=== PATIENT | male | born 1955 | race Caucasian/White ===

== ENCOUNTER 2016-11-30 14:55 | Emergency (ER) | payer MEDICARE, OTHER ==
[2016-11-30] MEDS ORDERED: Nitroglycerin 0.4 MG Tab.SL ONE (15:08)
[2016-11-30] MEDS ORDERED: Aspirin 81 MG Tab.Chew ONE (15:08)
[2016-11-30] MEDS ORDERED: Sodium Chloride 0.9% 1,000 ML IV ONE (15:23)
--- NOTE | 2016-11-30 15:23 | EDM.PDOC ---
ED HISTORY OF PRESENT ILLNESS - General Time Seen by Provider: 11/30/16 15:00 Source of Information: Reports: Patient History Limitations: Reports: No limitations - History of Present Illness INITIAL COMMENTS - FREE TEXT/NARRATIVE: Patient presents with chest pain "like someone is standing on his chest". This started 20 minutes ago while waiting out in his car for his daughter here in the ER. He rates pain at 9/10 and says he has never had this before, although he has been told he has had three heart attacks in the past. Yesterday he was in [place] for an angiogram and was told he has too much blockage for angioplasty or stenting and are planning on a triple CABG in the near future down in [place]. He has diabetes and smokes 1 ppd. Yesterday the occupational therapist aide started him on metoprolol and isosorbide. Pt has hepatitis B. - Related Data Allergies/ADRs: Allergies Allergy/AdvReac Type Severity Reaction Status Date / Time varenicline [From Chantix] Allergy Vomiting Verified 11/30/16 15:23 Home Meds: Home Meds Celecoxib [CeleBREX] 200 mg PO DAILY PRN 11/30/16 [History] DULoxetine [Cymbalta] 11/30/16 [History] Insulin Aspart [NovoLOG] 4 - 6 units SQ TIDAC 11/30/16 [History] Insulin Glarg,Human.Rec.Analog [LantUS Solostar] 11/30/16 [History] Lisinopril 11/30/16 [History] Pregabalin [Lyrica] 11/30/16 [History] QUEtiapine [SEROquel] 11/30/16 [History] Ranitidine [Zantac] 150 mg PO DAILY 11/30/16 [History] ED ROS GENERAL - Review of Systems Review Of Systems: See Below Constitutional: Denies: fever, chills HEENT: Reports: No symptoms Respiratory: Reports: Shortness of Breath. Denies: Cough Cardiovascular: Reports: Chest pain. Denies: Edema, Syncope GI/Abdominal: Denies: Constipation, Diarrhea, Nausea, Vomiting : Reports: no symptoms Musculoskeletal: Reports: neck pain (chronic, history of cervical fusion). Denies: shoulder pain, arm pain Skin: Denies: cyanosis, jaundice, mottled, pallor, diaphoresis Neurological: Denies: Confusion, Dizziness, Seizure, Syncope, Trouble Speaking, Difficulty Walking ED EXAM, GENERAL - Physical Exam Exam: See Below Exam Limited By: No limitations General Appearance: alert, WD/WN, no apparent distress Eye Exam: bilateral eye: EOMI, normal inspection, PERRL Ears: normal external exam, hearing grossly normal Nose: normal inspection Throat/Mouth: Normal lips, Normal voice, No airway compromise Head: atraumatic, normocephalic Respiratory/Chest: lungs clear, normal breath sounds, no accessory muscle use, other (tachypnea). No: decreased breath sounds, crackles, rales, rhonchi, wheezing, stridor Cardiovascular: normal peripheral pulses, regular rate, rhythm, no edema, no JVD , no murmur Peripheral Pulses: 2+: carotid (L), carotid (R), radial (L), radial (R), posterior tibial (L), posterior tibial (R) GI/Abdominal: normal bowel sounds, soft, no organomegaly, no distention, tender (somewhat over bladder and LLQ) Extremities: normal inspection, normal range of motion, non-tender, no pedal edema Neurological: alert, oriented, normal cognition, no motor/sensory deficits Psychiatric: normal affect, normal mood Skin Exam: Warm, Dry, Intact, Normal color, No rash Course - Orders/Labs/Meds Orders: Active Orders 24 hr Category Date Time Status EKG Documentation Completion [RC] ASDIRECTED Care 11/30/16 15:13 Ordered CXR [Chest 1V Frontal] [CR] Stat Exams 11/30/16 15:11 Ordered BASIC METABOLIC PANEL,BMP [CHEM] Stat Lab 11/30/16 15:11 Ordered CBC WITH AUTO DIFF [HEME] Stat Lab 11/30/16 15:11 Ordered TROPONIN I [CHEM] Stat Lab 11/30/16 15:11 Ordered EKG 12 Lead [EK] Routine Ther 11/30/16 15:11 Ordered Meds: Medications Discontinued Medications Generic Name Dose Route Start Last Admin Trade Name Freq PRN Reason Stop Dose Admin Aspirin Confirm 11/30/16 15:08 Aspirin Administered 11/30/16 15:09 Dose 324 mg .ROUTE .STK-MED ONE Nitroglycerin Confirm 11/30/16 15:08 Nitrostat Administered 11/30/16 15:09 Dose 0.4 mg .ROUTE .STK-MED ONE - Re-Assessments/Exams Free Text/Narrative Re-Assessment/Exam: 11/30/16 16:19 Chest pressure went from 9/10 to 0 after one nitro. Patient is comfortable now. EKG normal. Trop 0.07; we discussed findings and will run serial troponins and monitor for return of symptoms. 11/30/16 16:45 Patient still comfortable. I am waiting for a call back from his occupational therapist aide to discuss options of keeping here for serial troponins vs sending to them for further evaluation. 11/30/16 17:47 We are sending patient to [facility] in [place] for evaluation and likely CABG. The hospitalist Dr. Buitrago accepted patient for transfer and will consult cardiology. Bebo Maxwell (the occupational therapist aide who cath'd pt yesterday) called me back a little later and agrees that the patient needs to be in a place with bypass capabilities so will send his angiogram results to [facility] in [place]. Departure - Departure Time of Disposition: 17:51 Disposition: DC/Tfer to Acute Hospital 02 Reason for Transfer *Q: Other (CABG) Condition: fair Clinical Impression: Unstable angina, Blockage of coronary artery of heart - My Orders Last 24 Hours: My Active Orders 11/30/16 15:11 CXR [Chest 1V Frontal] [CR] Stat BASIC METABOLIC PANEL,BMP [CHEM] Stat CBC WITH AUTO DIFF [HEME] Stat TROPONIN I [CHEM] Stat EKG 12 Lead [EK] Routine 11/30/16 15:13 EKG Documentation Completion [RC] ASDIRECTED - Assessment/Plan Last 24 Hours: My Active Orders 11/30/16 15:11 CXR [Chest 1V Frontal] [CR] Stat BASIC METABOLIC PANEL,BMP [CHEM] Stat CBC WITH AUTO DIFF [HEME] Stat TROPONIN I [CHEM] Stat EKG 12 Lead [EK] Routine 11/30/16 15:13 EKG Documentation Completion [RC] ASDIRECTED
[2016-11-30 15:45] LABS: CHLORIDE,CL 103 mmol/L (98-115); SODIUM,NA 140 mmol/L (136-145)
[2016-11-30] MEDS ORDERED: Heparin Sodium 5,000 Units/ML Vial IVPUSH ONE (17:41)
[2016-11-30] MEDS ORDERED: Heparin Sodium/D5W 25,000 UNITS/250 ML BAG IV SCH (17:45)
[2016-11-30 18:06] VITALS: BP 127/64
[2016-11-30] MEDS ORDERED: Heparin Sodium/D5W 25,000 UNITS/250 ML BAG ONE (20:02)
[2016-11-30] MEDS ORDERED: Sodium Chloride 0.9% 1,000 ML ONE (20:02)
[2016-12-03] MEDS ORDERED: Aspirin 81 MG Tab.Chew CHEW ONE (09:43)
[2016-12-03] MEDS ORDERED: Nitroglycerin 0.4 MG Tab.SL SL ONE (09:44)
== END 2016-11-30 18:27 ==
LOC: KA.ED 14:55
DX: I20.0 Unstable angina (principal); I21.3 ST elevation (STEMI) myocardial infarction of unspecified site; E11.9 Type 2 diabetes mellitus without complications; F17.210 Nicotine dependence, cigarettes, uncomplicated; Z79.4 Long term (current) use of insulin; Z79.899 Other long term (current) drug therapy; Z88.8 Allergy status to other drugs, medicaments and biological substances
CPT/HCPCS: 36415; 71010; 80048; 81001; 84484; 85025; 85730; 93005; 96361; 96365; 99285; A9270; J1644; J7030

== ENCOUNTER 2018-11-15 02:04 | Emergency (ER) | payer MEDICARE, OTHER ==
--- NOTE | 2018-11-15 02:17 | EDM.PDOC ---
ED HPI GENERAL MEDICAL PROBLEM - General Chief Complaint: Neurological Problem Stated Complaint: Intoxicated Time Seen by Provider: 11/15/18 02:10 Source of Information: Reports: Patient, EMS History Limitations: Reports: Intoxication - History of Present Illness INITIAL COMMENTS - FREE TEXT/NARRATIVE: 63 YO WM presents to ER by EMS with complaints of lower extremity weakness after a fall. Pt reports he was drinking alcohol at the bar [employer] and decided to walk home. Pt reports on his way home he fell multiple times. Pt reports landing on he back and complains of low back pain with lower extremity weakness. Pt denies hitting his head or any other injuries at this time. Pt is alert and oriented x 4 with mild slurred speech. Pt answers all commands appropriately. Pt denies any neck pain or headache at this time. Pt denies chest pain or shortness of breath. No recent illness or fever/chills. Onset: Today Duration: Hour(s): (2) Location: Reports: Back Quality: Reports: Ache Severity: Moderate Improves with: Reports: Rest Worsens with: Reports: Movement Associated Symptoms: Reports: Weakness. Denies: Confusion, Chest Pain, Fever/ Chills, Headaches, Nausea/Vomiting, Shortness of Breath - Related Data Allergies Allergy/AdvReac Type Severity Reaction Status Date / Time varenicline [From Chantix] Allergy Vomiting Verified 11/30/16 15:23 Home Meds: Home Meds Celecoxib [CeleBREX] 200 mg PO DAILY PRN 11/30/16 [History] DULoxetine [Cymbalta] 30 mg PO DAILY 11/30/16 [History] Insulin Aspart [NovoLOG] 4 - 6 units SQ TIDAC 11/30/16 [History] Insulin Glarg,Human.Rec.Analog [LantUS Solostar] 18 units SQ DAILY 11/30/16 [ History] Lisinopril 2.5 g PO DAILY 11/30/16 [History] Pregabalin [Lyrica] 75 mg PO BID 11/30/16 [History] QUEtiapine [SEROquel] 100 mg PO DAILY 11/30/16 [History] Ranitidine [Zantac] 150 mg PO DAILY 11/30/16 [History] Past Medical History HEENT History: Reports: Hard of Hearing, Impaired Vision Cardiovascular History: Reports: CAD, Hypertension, [place] Gastrointestinal History: Reports: GERD Genitourinary History: Reports: Renal Disease Musculoskeletal History: Reports: Arthritis Psychiatric History: Reports: Anxiety, Depression Endocrine/Metabolic History: Reports: Diabetes, Type II - Infectious Disease History Infectious Disease History: Reports: Chicken Pox, Hepatitis B, Measles, Mumps, Shingles - Past Surgical History Musculoskeletal Surgical History: Reports: Other (See Below) Social & Family History - Family History Family Medical History: Noncontributory - Caffeine Use Caffeine Use: Reports: Coffee, Soda ED ROS GENERAL - Review of Systems Review Of Systems: See Below Constitutional: Reports: No Symptoms HEENT: Reports: No Symptoms Respiratory: Reports: No Symptoms Cardiovascular: Reports: No Symptoms Endocrine: Reports: No Symptoms GI/Abdominal: Reports: No Symptoms : Reports: No Symptoms Musculoskeletal: Reports: Back Pain. Denies: Neck Pain Skin: Reports: No Symptoms Neurological: Reports: Difficulty Walking, Weakness. Denies: Confusion, Dizziness, Headache Psychiatric: Reports: No Symptoms Hematologic/Lymphatic: Reports: No Symptoms - Physical Exam Exam: See Below Exam Limited By: No Limitations General Appearance: Alert, WD/WN, No Apparent Distress Eye Exam: Bilateral Eye: EOMI, PERRL Ears: Normal External Exam, Normal Canal, Hearing Grossly Normal, Normal TMs Nose: Normal Inspection, Normal Mucosa, No Blood Throat/Mouth: Normal Inspection, Normal Lips, Normal Teeth, Normal Gums, Normal Oropharynx, Normal Voice, No Airway Compromise Head Exam: Atraumatic, Normocephalic Neck: Normal Inspection, Supple, Non-Tender, Full Range of Motion Respiratory/Chest: No Respiratory Distress, Lungs Clear, Normal Breath Sounds, No Accessory Muscle Use, Chest Non-Tender Cardiovascular: Normal Peripheral Pulses, Regular Rate, Rhythm, No Edema, No Gallop, No JVD, No Murmur, No Rub GI/Abdominal: Normal Bowel Sounds, Soft, Non-Tender, No Organomegaly, No Distention, No Abnormal Bruit, No Mass Neuro Exam (Abbreviated): Alert, Oriented, CN II-XII Intact, Normal Cognition Back Exam: Paraspinal Tenderness, Vertebral Tenderness Extremities: Normal Inspection, Normal Range of Motion, Non-Tender, No Pedal Edema, Normal Capillary Refill Psychiatric: Normal Affect, Normal Mood Skin Exam: Warm, Dry, Intact, Normal Color, No Rash EKG INTERPRETATION EKG Date: 11/15/18 Time: 03:03 Rhythm: NSR Rate (Beats/Min): 77 [place]: Normal P-Wave: Present QRS: Normal ST-T: Normal QT: Normal Course - Orders/Labs/Meds Orders: Active Orders 24 hr Category Date Time Status EKG Documentation Completion [RC] ASDIRECTED Care 11/15/18 02:16 Active Cervical Spine wo Cont [CT] Stat Exams 11/15/18 03:04 Ordered Head wo Cont [CT] Stat Exams 11/15/18 02:15 Ordered Lumbar Spine wo Cont [CT] Stat Exams 11/15/18 02:35 Ordered EKG 12 Lead [EK] Routine Ther 11/15/18 02:15 Ordered Labs: Laboratory Tests 11/15/18 11/15/18 Range/Units 03:20 03:20 WBC 7.98 (5.00-10.00) 10^3/uL RBC 4.23 L (4.50-6.00) 10^6/uL Hgb 14.0 (13.0-17.0) g/dL Hct 40.7 (40.0-52.0) % MCV 96.2 H (82.0-92.0) fL MCH 33.1 H (27.0-31.0) pg MCHC 34.4 (32.0-36.0) g/dL RDW 13.4 (11.5-14.5) % Plt Count 309 (150-400) 10^3/uL MPV 9.8 (7.4-10.4) fL Immature Gran % (Auto) 0.1 (0.0-5.0) % Neut % (Auto) 44.1 L (50.0-70.0) % Lymph % (Auto) 38.0 (20.0-40.0) % Carbon % (Auto) 10.9 H (2.0-8.0) % Eos % (Auto) 6.1 H (1.0-3.0) % Baso % (Auto) 0.8 (0.0-1.0) % Immature Gran # (Auto) 0.01 (0.00-0.50) 10^3/uL Neut # (Auto) 3.52 (2.50-7.00) 10^3/uL Lymph # (Auto) 3.03 (1.00-4.00) 10^3/uL Carbon # (Auto) 0.87 H (0.10-0.80) 10^3/uL Eos # (Auto) 0.49 H (0.10-0.30) 10^3/uL Baso # (Auto) 0.06 (0.00-0.10) 10^3/uL Sodium 144 (136-145) mmol/L Potassium 4.0 (3.3-5.3) mmol/L Chloride 108 D (98-115) mmol/L Carbon Dioxide 21.2 (21.0-32.0) mmol/L Anion Gap 18.8 H (5-15) mmol/L BUN 19 (6-25) mg/dL Creatinine 1.31 H (0.51-1.17) mg/dL Est Cr Clr Drug Dosing TNP Estimated GFR (MDRD) 55 mL/min Glucose 196 H (75 - 99) mg/dL Calcium 8.7 (8.7-10.3) mg/dL Total Bilirubin 0.2 (0.2-1.0) mg/dL AST 35 (15-37) U/L ALT 38 (12-78) U/L Alkaline Phosphatase 168 H (46-116) IU/L Total Protein 7.4 (6.4-8.2) g/dL Albumin 3.54 (3.00-4.80) g/dL Ethyl Alcohol 218 H* (NONE DETECTED) mg/dL - Radiology Interpretation Free Text/Narrative:: CT brain- NAD CT lumbar- NAD CT cervical- NAD - Re-Assessments/Exams Free Text/Narrative Re-Assessment/Exam: 11/15/18 04:02 Pt able to ambulate without difficulty. Pt stood and urinated into a urinal without dysfunction. Pt alert and oriented x4. Pt has a friend who will pick him up from ER. GCS-15 Departure - Departure Time of Disposition: 04:06 Disposition: Home, Self-Care 01 Condition: Good Clinical Impression: Alcohol intoxication Qualifiers: Complication of substance-induced condition: uncomplicated Qualified Code(s): F10.920 - Alcohol use, unspecified with intoxication, uncomplicated Fall Qualifiers: Encounter type: initial encounter Qualified Code(s): W19.XXXA - Unspecified fall, initial encounter Low back pain Qualifiers: Chronicity: acute Back pain laterality: midline Sciatica presence: without sciatica Qualified Code(s): M54.5 - Low back pain - Discharge Information Instructions: Back Pain, Adult, Alcohol Intoxication, [id number] Referrals: Yanelis Maldonado MD [Physician] - Forms: ED Department Discharge Additional Instructions: 1. discharge home 2. heat to back 3. motrin 600mg PO Q6 for pain 4. follow up with PCP for further evaluation and treatment 5. return to ER for worsening symptoms - My Orders Last 24 Hours: My Active Orders 11/15/18 02:15 Head wo Cont [CT] Stat EKG 12 Lead [EK] Routine 11/15/18 02:16 EKG Documentation Completion [RC] ASDIRECTED 11/15/18 02:35 Lumbar Spine wo Cont [CT] Stat 11/15/18 03:04 Cervical Spine wo Cont [CT] Stat - Assessment/Plan Last 24 Hours: My Active Orders 11/15/18 02:15 Head wo Cont [CT] Stat EKG 12 Lead [EK] Routine 11/15/18 02:16 EKG Documentation Completion [RC] ASDIRECTED 11/15/18 02:35 Lumbar Spine wo Cont [CT] Stat 11/15/18 03:04 Cervical Spine wo Cont [CT] Stat Assessment:: 1. ETOH intoxication 2. low back pain after fall 3. lower extremity weakness- resolved Plan: 1. discharge home 2. heat to back 3. motrin 600mg PO Q6 for pain 4. follow up with PCP for further evaluation and treatment 5. return to ER for worsening symptoms
[2018-11-15 03:49] LABS: ANION GAP 18.8 mmol/L (5-15); CHLORIDE,CL 108 mmol/L (98-115); SODIUM,NA 144 mmol/L (136-145)
--- NOTE | 2018-11-15 05:15 | CT ---
[id number] CT/CT Head WO IV EXAM: CT Head WO IV CLINICAL DATA: TRAUMA COMPARISON STUDY: August 2018 FINDINGS: No CT evidence of acute large vessel ischemia. Mild/moderate diffuse parenchymal atrophy. Findings are nonspecific but commonly seen as sequela of chronic small vessel disease. Calvarium is intact. Mastoid air cells and middle ear cavities are clear. IMPRESSION: No acute findings or significant change from the prior examination. Daren Lyons MD 11/15/18 0514 Thank you for allowing us to participate in the care of your patient.
--- NOTE | 2018-11-15 05:18 | CT ---
[id number] CT/CT Cervical Spine WO IV EXAM: CT Cervical Spine WO IV INDICATION: TRAUMA COMPARISON: None. DISCUSSION: Postsurgical change from anterior fusion of C4-C7 Scattered changes of spondylosis the spine. Findings including advanced C3-4 degenerative disc disease with intervertebral disc height loss. Paraseptal and centrilobular emphysematous changes in both lung apices. IMPRESSION: No acute findings in the cervical spine. Daren Lyons MD 11/15/18 0517 Thank you for allowing us to participate in the care of your patient.
--- NOTE | 2018-11-15 05:20 | CT ---
[id number] CT/CT Lumbar Spine WO IV Exam: CT Lumbar Spine WO IV Indication:TRAUMA Comparison: No prior imaging for comparison. Discussion: Mild/moderate changes of spondylosis throughout the lumbar and lower thoracic spine. Findings include intervertebral disc height loss at L2-3. No acute fracture or compression deformity. No spondylolisthesis. Soft tissues are unremarkable. Impression: No acute findings. Other findings are described above. Daren Lyons MD 11/15/18 0519 Thank you for allowing us to participate in the care of your patient.
[2018-11-15 10:43] VITALS: BP 114/70
== END 2018-11-15 04:30 | disposition home or self-care (01) ==
LOC: KA.ED 02:04
DX: M54.5 Low back pain (principal); F10.120 Alcohol abuse with intoxication, uncomplicated; I10 Essential (primary) hypertension; I25.2 Old myocardial infarction; Y90.8 Blood alcohol level of 240 mg/100 ml or more; W19.XXXA Unspecified fall, initial encounter; Z88.8 Allergy status to other drugs, medicaments and biological substances; Z79.899 Other long term (current) drug therapy
CPT/HCPCS: 36415; 70450; 72125; 72131; 80053; 85025; 93005; 99284; G0480

== ENCOUNTER 2019-02-05 14:40 | Emergency (ER) | payer MEDICARE, OTHER ==
[2019-02-05 15:16] VITALS: BP 124/66
--- NOTE | 2019-02-05 15:29 | EDM.PDOC ---
ED HPI GENERAL MEDICAL PROBLEM - General Chief Complaint: Lower Extremity Injury/Pain Stated Complaint: rolled my left ankle Time Seen by Provider: 02/05/19 15:00 Source of Information: Reports: Patient History Limitations: Reports: No Limitations - History of Present Illness INITIAL COMMENTS - FREE TEXT/NARRATIVE: 63-year-old gentleman reports earlier today at approximately 2:00 he slipped off a curb sustaining an injury to his left ankle. This is an inversion type of injury. He complains only of pain along the lateral ankle. He was able to walk home and weight-bear. He is then decided to call the ambulance of service to bring him in for further evaluation due to his pain and discomfort. Reports really no significant swelling or ecchymosis. He was placed in a air compressive splint and ice pack was applied over the left ankle. No other complaints are voiced he denies any trauma to his right lower extremity or either upper extremity. He has no head trauma no loss of consciousness. 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 Pain Score (Numeric/FACES): 8 - Related Data Allergies Allergy/AdvReac Type Severity Reaction Status Date / Time varenicline [From Chantix] Allergy Vomiting Verified 02/05/19 14:49 Home Meds: Home Meds Celecoxib [CeleBREX] 200 mg PO DAILY PRN 11/30/16 [History] DULoxetine [Cymbalta] 30 mg PO DAILY 11/30/16 [History] Insulin Aspart [NovoLOG] 4 - 6 units SQ TIDAC 11/30/16 [History] Lisinopril 2.5 g PO DAILY 11/30/16 [History] Pregabalin [Lyrica] 75 mg PO BID 11/30/16 [History] QUEtiapine [SEROquel] 100 mg PO BEDTIME 11/30/16 [History] Ranitidine [Zantac] 150 mg PO DAILY 11/30/16 [History] Amiodarone HCl [Pacerone] 100 mg PO BID 02/05/19 [History] Aspirin [Halfprin] 81 mg PO DAILY 02/05/19 [History] Budesonide/Formoterol [Symbicort 160-4.5 MCG] 1 puff INH BID 02/05/19 [History] Carvedilol [Coreg] 3.125 mg PO BID 02/05/19 [History] Docusate Sodium 100 mg PO BID PRN 02/05/19 [History] Furosemide [Lasix] 20 mg PO DAILY 02/05/19 [History] Insulin Degludec [Tresiba] 29 unit SQ BEDTIME 02/05/19 [History] Isosorbide Mononitrate [Isosorbide Mononitrate ER] 15 mg PO DAILY@1200 02/05/19 [History] Nitroglycerin [Nitrostat] 0.4 mg SL ASDIRECTED PRN 02/05/19 [History] Ubidecarenone [Co Q-10] 10 mg PO DAILY 02/05/19 [History] atorvaSTATin Calcium [Atorvastatin Calcium] 40 mg PO DAILY 02/05/19 [History] Past Medical History HEENT History: Reports: Hard of Hearing, Impaired Vision Cardiovascular History: Reports: CAD, Hypertension, [place] Gastrointestinal History: Reports: GERD Genitourinary History: Reports: Renal Disease Musculoskeletal History: Reports: Arthritis Other Musculoskeletal History: fractured neck 3 places in 2008 Psychiatric History: Reports: Anxiety, Depression Endocrine/Metabolic History: Reports: Diabetes, Type II - Infectious Disease History Infectious Disease History: Reports: Chicken Pox, Hepatitis B, Measles, Mumps, Shingles - Past Surgical History Musculoskeletal Surgical History: Reports: Other (See Below) Other Musculoskeletal Surgeries/Procedures:: cervical spine Social & Family History - Family History Family Medical History: Noncontributory - Tobacco Use Smoking Status *Q: Current Every Day Smoker Years of Tobacco use: 45 Packs/Tins Daily: 1 Used Tobacco, but Quit: No Second Hand Smoke Exposure: Yes - Caffeine Use Caffeine Use: Reports: Coffee Caffeine Use Comment: did not ask - Recreational Drug Use Recreational Drug Use: No Review of Systems - Review of Systems Review Of Systems: ROS reveals no pertinent complaints other than HPI. ED EXAM, GENERAL - Physical Exam Exam: See Below Exam Limited By: No Limitations General Appearance: Alert, WD/WN, No Apparent Distress Ears: Hearing Grossly Normal Nose: Normal Inspection Throat/Mouth: Normal Voice Head: Atraumatic, Normocephalic Neck: Normal Inspection Respiratory/Chest: No Respiratory Distress Extremities: Normal Inspection, Other (Left ankle is without deformity. No significant swelling. No ecchymosis. Patient is tender over the lateral ankle gutter over the ATF ligament. He has no tenderness across the medial malleolus or lateral malleolus. He has no tenderness over the syndesmosis. He has intact sensation to light touch. Skin is warm dry and intact. Pulses are 2+. He has normal knee range of motion left. 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 Impression: normal ankle x-ray Departure - Departure Time of Disposition: 15:30 Disposition: Home, Self-Care 01 Condition: Good Clinical Impression: Left ankle sprain Qualifiers: Encounter type: initial encounter Involved ligament of ankle: anterior talofibular ligament Qualified Code(s): S93.492A - Sprain of other ligament of left ankle, initial encounter - Discharge Information Instructions: [facility] for Routine Care of Injuries, [id number] Referrals: Yanelis Maldonado MD [Primary Care Provider] - Forms: ED Department Discharge Additional Instructions: 1. Rest. Ice. Compression. Elevation. 2. Ibuprofen 800 mg 3 times a day with food as needed for pain. 3. Weight-bear as tolerated left ankle. 4. Follow-up with your primary care in 10 days if pain and discomfort does not improve. - My Orders Last 24 Hours: My Active Orders 02/05/19 14:49 Ankle Min 3V Lt [CR] Stat - Assessment/Plan Last 24 Hours: My Active Orders 02/05/19 14:49 Ankle Min 3V Lt [CR] Stat Assessment:: Left ankle sprain Plan: 1. Rest. Ice. Compression. Elevation. 2. Ibuprofen 800 mg 3 times a day with food as needed for pain. 3. Weight-bear as tolerated left ankle. 4. Follow-up with your primary care in 10 days if pain and discomfort does not improve.
--- NOTE | 2019-02-05 15:47 | CR ---
[id number] RAD/RAD Ankle Left 3V Min EXAM: LEFT ANKLE 3 VIEWS INDICATION: LEFT LATERAL ANKLE PAIN. COMPARISON: None. DISCUSSION: No fracture, dislocation or other osseous abnormality. IMPRESSION: 1. Negative exam. Jai Bear MD 02/05/19 [id number] Thank you for allowing us to participate in the care of your patient.
== END 2019-02-05 17:16 | disposition home or self-care (01) ==
LOC: KA.ED 14:40
DX: S93.492A Sprain of other ligament of left ankle, initial encounter (principal); I10 Essential (primary) hypertension; I25.2 Old myocardial infarction; I25.10 Atherosclerotic heart disease of native coronary artery without angina pectoris; M19.90 Unspecified osteoarthritis, unspecified site; E11.9 Type 2 diabetes mellitus without complications; F17.210 Nicotine dependence, cigarettes, uncomplicated; Z79.4 Long term (current) use of insulin; Z79.899 Other long term (current) drug therapy; Z88.8 Allergy status to other drugs, medicaments and biological substances; W10.1XXA Fall (on)(from) sidewalk curb, initial encounter
CPT/HCPCS: 73610-LT; 99283; 99283-25

== ENCOUNTER 2020-02-29 23:35 | Emergency (ER) | payer MEDICARE, OTHER ==
[2020-02-29] MEDS ORDERED: Sodium Chloride 0.9% 10 ML Syringe FLUSH PRN (23:46)
[2020-02-29] MEDS ORDERED: Sodium Chloride 0.9% 1,000 ML IV ONE (23:46)
--- NOTE | 2020-02-29 23:52 | EDM.PDOC ---
ED HPI GENERAL MEDICAL PROBLEM - General Chief Complaint: General Stated Complaint: dizziness Time Seen by Provider: 02/29/20 23:45 Source of Information: Reports: Patient History Limitations: Reports: No Limitations - History of Present Illness INITIAL COMMENTS - FREE TEXT/NARRATIVE: Patient is a 64-year-old gentleman who presents to the emergency department via EMS with a complaint of dizziness and abdominal pain. Patient states he was standing up making dinner about 2 hours ago, when he felt dizzy and the need to have a bowel movement. Patient proceeded to the bathroom and had a large watery stool. Patient states he felt very weak and dizzy, felt nauseous and abdomen felt crampy so called 911. Patient denies chest pain, shortness of breath, fever, blood in stool, out of area travel, dysuria, testicular pain, flank pain, or family members with similar symptoms. After discussing incident with patient. He thinks it might have been very hot in the home. Onset: Today, Sudden Duration: Hour(s): Location: Reports: Abdomen Quality: Reports: Pressure Severity: Mild Improves with: Reports: Other (Spontaneously) Worsens with: Reports: None Associated Symptoms: Reports: Diaphoresis, Nausea/Vomiting. Denies: Chest Pain, Fever/Chills, Shortness of Breath - Related Data Allergies Allergy/AdvReac Type Severity Reaction Status Date / Time varenicline [From Chantix] Allergy Vomiting Verified 03/01/20 00:06 Home Meds: Home Meds Aspirin [Halfprin] 81 mg PO DAILY 02/05/19 [History] Budesonide/Formoterol [Symbicort 160-4.5 MCG] 2 puff INH BID 02/05/19 [History] Furosemide [Lasix] 20 mg PO DAILY 02/05/19 [History] Nitroglycerin [Nitrostat] 0.4 mg SL ASDIRECTED PRN 07/07/19 [History] Past Medical History HEENT History: Reports: Hard of Hearing, Impaired Vision Cardiovascular History: Reports: CAD, Heart Failure, Hypertension, [place] Respiratory History: Reports: Bronchitis, Recurrent, COPD Gastrointestinal History: Reports: GERD, Jaundice Genitourinary History: Reports: BPH, Renal Disease Musculoskeletal History: Reports: Arthritis Other Musculoskeletal History: fractured neck 3 places in 2008 Neurological History: Reports: Migraines, Neuropathy, Diabetic Psychiatric History: Reports: Anxiety, Depression Endocrine/Metabolic History: Reports: Diabetes, Type II - Infectious Disease History Infectious Disease History: Reports: Chicken Pox, Hepatitis B, Measles, Mumps, Shingles - Past Surgical History Musculoskeletal Surgical History: Reports: Other (See Below) Other Musculoskeletal Surgeries/Procedures:: cervical spine Social & Family History - Family History Family Medical History: Noncontributory - Caffeine Use Caffeine Use: Reports: Coffee Caffeine Use Comment: did not ask ED ROS GENERAL - Review of Systems Review Of Systems: Comprehensive ROS is negative, except as noted in HPI. Constitutional: Reports: No Symptoms HEENT: Reports: No Symptoms Respiratory: Reports: No Symptoms Cardiovascular: Reports: No Symptoms Endocrine: Reports: No Symptoms GI/Abdominal: Reports: Abdominal Pain : Reports: No Symptoms Musculoskeletal: Reports: No Symptoms Skin: Reports: No Symptoms Neurological: Reports: No Symptoms Psychiatric: Reports: No Symptoms Hematologic/Lymphatic: Reports: No Symptoms Immunologic: Reports: No Symptoms ED EXAM, GENERAL - Physical Exam Exam: See Below Exam Limited By: No Limitations General Appearance: Alert, WD/WN, No Apparent Distress Nose: Normal Inspection, Normal Mucosa, No Blood Throat/Mouth: Normal Inspection, Normal Oropharynx, No Airway Compromise Head: Atraumatic, Normocephalic Neck: Normal Inspection, Supple Respiratory/Chest: No Respiratory Distress, Lungs Clear, Normal Breath Sounds, No Accessory Muscle Use, Chest Non-Tender Cardiovascular: Regular Rate, Rhythm, No Murmur GI/Abdominal: Normal Bowel Sounds, Soft, No Organomegaly, No Distention, No Abnormal Bruit, No Mass, Tender (Epigastric). No: Distended, Guarding, Rigid, Rebound (Male) Exam: No Hernia Back Exam: Normal Inspection. No: CVA Tenderness (L), CVA Tenderness (R) Extremities: Normal Inspection, No Pedal Edema Neurological: Alert, Oriented, Normal Cognition Psychiatric: Normal Affect, Normal Mood Skin Exam: Warm, Dry, Intact, Normal Color, No Rash Lymphatic: No Adenopathy EKG INTERPRETATION EKG Date: 03/01/20 Time: 00:45 Rhythm: NSR Rate (Beats/Min): 82 [place]: Normal P-Wave: Present QRS: Normal ST-T: Other (Nonspecific) QT: Normal Comparison: No Change (From October 2018) Course - Vital Signs Last Recorded V/S: Last Vital Signs Temp Pulse Resp BP 99/58 L 03/01/20 00:07 Pulse Ox - Orders/Labs/Meds Orders: Active Orders 24 hr Category Date Time Status EKG Documentation Completion [RC] ASDIRECTED Care 03/01/20 00:35 Ordered Peripheral IV Care [RC] . DIRECTED Care 02/29/20 23:47 Ordered Abdomen Series w Chest 1V [CR] Stat Exams 02/29/20 23:46 Ordered Sodium Chloride 0.9% [Saline Flush] Med 02/29/20 23:46 Ordered 10 ml FLUSH Q8HR PRN Peripheral IV Insertion Pediatric [OM.PC] Routine Oth 02/29/20 23:46 Ordered EKG 12 Lead [EK] Stat Ther 03/01/20 00:35 Ordered Medication Orders Sodium Chloride (Saline Flush) 10 ml FLUSH Q8HR PRN PRN Reason: keep vein open Labs: Laboratory Tests 02/29/20 02/29/20 Range/Units 23:50 23:50 WBC 10.81 H (5.00-10.00) 10^3/uL RBC 4.31 L (4.50-6.00) 10^6/uL Hgb 13.4 (13.0-17.0) g/dL Hct 41.0 (40.0-52.0) % MCV 95.1 H (82.0-92.0) fL MCH 31.1 H (27.0-31.0) pg MCHC 32.7 (32.0-36.0) g/dL RDW 12.7 (11.5-14.5) % Plt Count 239 (150-400) 10^3/uL MPV 11.0 H (7.4-10.4) fL Immature Gran % (Auto) 0.1 (0.0-5.0) % Neut % (Auto) 64.5 (50.0-70.0) % Lymph % (Auto) 23.9 (20.0-40.0) % [place] % (Auto) 7.9 (2.0-8.0) % Eos % (Auto) 3.0 (1.0-3.0) % Baso % (Auto) 0.6 (0.0-1.0) % Neut # (Auto) 6.99 (2.50-7.00) 10^3/uL Lymph # (Auto) 2.58 (1.00-4.00) 10^3/uL [place] # (Auto) 0.85 H (0.10-0.80) 10^3/uL Eos # (Auto) 0.32 H (0.10-0.30) 10^3/uL Baso # (Auto) 0.06 (0.00-0.10) 10^3/uL Immature Gran # (Auto) 0.01 (0.00-0.50) 10^3/uL Sodium 137 D (136-145) mmol/L Potassium 4.7 (3.3-5.3) mmol/L Chloride 105 (98-115) mmol/L Carbon Dioxide 21.7 (21.0-32.0) mmol/L Anion Gap 15.0 (5-15) mmol/L BUN 25 (6-25) mg/dL Creatinine 1.95 H (0.51-1.17) mg/dL Est Cr Clr Drug Dosing 35.60 mL/min Estimated GFR (MDRD) 35 mL/min Glucose 158 H (75 - 99) mg/dL Calcium 8.8 (8.7-10.3) mg/dL Total Bilirubin 0.5 (0.2-1.0) mg/dL AST 30 (15-37) U/L ALT 37 (12-78) U/L Alkaline Phosphatase 140 H (46-116) IU/L Troponin I 0.07 (0.00-0.070) ng/mL Total Protein 7.4 (6.4-8.2) g/dL Albumin 3.45 (3.00-4.80) g/dL Lipase 93 (73-393) U/L Meds: Medications Generic Name Dose Route Start Last Admin Trade Name Freq PRN Reason Stop Dose Admin Sodium Chloride 10 ml 02/29/20 23:46 Saline Flush FLUSH Q8HR PRN keep vein open Discontinued Medications Generic Name Dose Route Start Last Admin Trade Name Freq PRN Reason Stop Dose Admin Sodium Chloride 1,000 mls @ 999 mls/hr 02/29/20 23:46 Normal Saline IV 03/01/20 00:46 .BOLUS ONE - Radiology Interpretation Free Text/Narrative:: Chest x-ray with abdominal series shows small right pleural effusion and no bowel obstruction - Re-Assessments/Exams Free Text/Narrative Re-Assessment/Exam: 03/01/20 00:56 Patient afebrile, vital signs stable, nontoxic appearing, denies chest pain, shortness of breath, abdominal pain, patient will follow-up with PCP. Departure - Departure Time of Disposition: 00:57 Disposition: Home, Self-Care 01 Condition: Good Clinical Impression: Dizziness, Weakness - Discharge Information Instructions: Weakness, [id number], Dizziness, [id number] Forms: ED Department Discharge Additional Instructions: Follow-up with PCP in next 1-2 days. Return to emergency department sooner if symptoms continue or worsen. Sepsis Event Note (ED) - Focused Exam Vital Signs: Vital Signs BP 03/01/20 00:07 99/58 L - My Orders Last 24 Hours: My Active Orders 02/29/20 23:46 Abdomen Series w Chest 1V [CR] Stat Sodium Chloride 0.9% [Saline Flush] 10 ml FLUSH Q8HR PRN Peripheral IV Insertion Pediatric [OM.PC] Routine 02/29/20 23:47 Peripheral IV Care [RC] . DIRECTED 03/01/20 00:35 EKG Documentation Completion [RC] ASDIRECTED EKG 12 Lead [EK] Stat - Assessment/Plan Last 24 Hours: My Active Orders 02/29/20 23:46 Abdomen Series w Chest 1V [CR] Stat Sodium Chloride 0.9% [Saline Flush] 10 ml FLUSH Q8HR PRN Peripheral IV Insertion Pediatric [OM.PC] Routine 02/29/20 23:47 Peripheral IV Care [RC] . DIRECTED 03/01/20 00:35 EKG Documentation Completion [RC] ASDIRECTED EKG 12 Lead [EK] Stat Assessment:: Dizziness Plan: Follow-up with PCP
[2020-03-01 03:24] VITALS: BP 100/58; PULSE 78
--- NOTE | 2020-03-01 07:39 | CR ---
[id number] RAD/RAD Abdomen 3V Exam: RAD Abdomen 3V Clinical Data: ABDOMINAL PAIN COMPARISON: CORRELATION IS MADE WITH NOVEMBER 30, 2016 FINDINGS: Pleural reaction with an air-fluid level at the right lung base is seen. The patient has undergone median sternotomy since the last exam There are surgical changes of the cervical spine again seen The left lung is clear There are multiple right-sided old rib fractures There is no bowel distention or free air There is no organomegaly or pathologic calcification IMPRESSION: INTERVAL SURGERY SINCE LAST EXAM MULTIPLE RIGHT RIB FRACTURES SINCE LAST EXAM NO ACUTE ABDOMINAL ABNORMALITY Henri Booth MD 03/01/20 0737 Thank you for allowing us to participate in the care of your patient.
== END 2020-03-01 01:15 | disposition home or self-care (01) ==
LOC: KA.ED 23:35
DX: R42 Dizziness and giddiness (principal); R53.1 Weakness; I11.0 Hypertensive heart disease with heart failure; I50.9 Heart failure, unspecified; I25.10 Atherosclerotic heart disease of native coronary artery without angina pectoris; I25.2 Old myocardial infarction; J44.9 Chronic obstructive pulmonary disease, unspecified; M19.90 Unspecified osteoarthritis, unspecified site; E11.9 Type 2 diabetes mellitus without complications; Z79.82 Long term (current) use of aspirin; Z79.899 Other long term (current) drug therapy; Z91.048 Other nonmedicinal substance allergy status
CPT/HCPCS: 36415; 74022; 80053; 83690; 84484; 85025; 93005; 99284; 99285-25

== ENCOUNTER 2021-03-06 04:00 | Emergency (ER) | payer MEDICARE, OTHER ==
[2021-03-06] MEDS ORDERED: Sodium Chloride 0.9% 1,000 ML IV ONE (04:14)
[2021-03-06] MEDS ORDERED: Albuterol/Ipratropium 3.0-0.5 MG/3 ML Neb Soln NEB ONE (04:14)
--- NOTE | 2021-03-06 04:50 | EDM.PDOC ---
ED HPI GENERAL MEDICAL PROBLEM - General Chief Complaint: Cardiovascular Problem Stated Complaint: SOB, dizziness Time Seen by Provider: 03/06/21 04:35 Source of Information: Reports: Patient History Limitations: Reports: No Limitations - History of Present Illness INITIAL COMMENTS - FREE TEXT/NARRATIVE: Patient presents with dyspnea and lightheadedness for about 24 hours. It has been quite constant without improving or worsening during that time. He denies chest pain or pressure, just really short of breath. He smokes 1 ppd. He doesn't know if he has COPD or past [place], but has had 4 vessel CABG. He has CHF and COPD per our records. He tried his inhaler at home without improvement but does feel better after the DuoNeb here in ER. headache Pain Score (Numeric/FACES): 4 - Related Data Allergies Allergy/AdvReac Type Severity Reaction Status Date / Time varenicline [From Chantix] Allergy Vomiting Verified 03/06/21 04:13 Home Meds: Home Meds Aspirin [Halfprin] 81 mg PO DAILY 02/05/19 [History] Budesonide/Formoterol [Symbicort 160-4.5 MCG] 2 puff INH BID 02/05/19 [History] Albuterol Sulfate [Albuterol Sulfate HFA] 2 puff INH BID PRN 03/06/21 [History] Past Medical History HEENT History: Reports: Hard of Hearing, Impaired Vision Cardiovascular History: Reports: CAD, Heart Failure, Hypertension, [place] Respiratory History: Reports: Bronchitis, Recurrent, COPD Gastrointestinal History: Reports: GERD, Jaundice Genitourinary History: Reports: BPH, Renal Disease Musculoskeletal History: Reports: Arthritis Other Musculoskeletal History: fractured neck 3 places in 2008 Neurological History: Reports: Migraines, Neuropathy, Diabetic Psychiatric History: Reports: Anxiety, Depression Endocrine/Metabolic History: Reports: Diabetes, Type II - Infectious Disease History Infectious Disease History: Reports: Chicken Pox, Hepatitis B, Measles, Mumps, Shingles - Past Surgical History Musculoskeletal Surgical History: Reports: Other (See Below) Other Musculoskeletal Surgeries/Procedures:: cervical spine Social & Family History - Family History Family Medical History: No Pertinent Family History - Caffeine Use Caffeine Use: Reports: Coffee Caffeine Use Comment: did not ask ED ROS GENERAL - Review of Systems Review Of Systems: See Below Constitutional: Reports: Weakness, Fatigue. Denies: Fever, Chills HEENT: Reports: No Symptoms Respiratory: Reports: Shortness of Breath, Cough (for several months but a little worse last few days) Cardiovascular: Reports: Lightheadedness. Denies: Chest Pain, Syncope Endocrine: Reports: Fatigue (mild) GI/Abdominal: Denies: Abdominal Pain, Vomiting Musculoskeletal: Reports: Neck Pain (chronic; had fusion), Back Pain (chronic). Denies: Shoulder Pain, Arm Pain Skin: Denies: Cyanosis, Jaundice, Mottled, Pallor, Diaphoresis Neurological: Denies: Confusion, Dizziness, Seizure, Syncope, Trouble Speaking, Difficulty Walking Psychiatric: Denies: Agitation, Anxiety, Confusion ED EXAM, GENERAL - Physical Exam Exam: See Below Exam Limited By: No Limitations General Appearance: Alert, WD/WN, No Apparent Distress Eye Exam: Bilateral Eye: EOMI, Normal Inspection, PERRL Ears: Normal External Exam, Hearing Grossly Normal Nose: Normal Inspection, No Blood Throat/Mouth: Normal Inspection, Normal Lips, Normal Voice, No Airway Compromise Head: Atraumatic, Normocephalic Neck: Normal Inspection, Full Range of Motion Respiratory/Chest: Crackles (bilat especially bases), Other (tachypnea and moderately poor air movement). No: Wheezing, Stridor Cardiovascular: Regular Rate, Rhythm, No Murmur Course - Vital Signs Last Recorded V/S: Last Vital Signs Temp 97.2 F 03/06/21 04:00 Pulse 90 03/06/21 05:15 Resp 23 H 03/06/21 05:15 BP 137/89 03/06/21 05:15 Pulse Ox 94 L 03/06/21 05:15 - Orders/Labs/Meds Orders: Active Orders 24 hr Category Date Time Status EKG Documentation Completion [RC] ASDIRECTED Care 03/06/21 04:14 Active RT Aerosol Therapy [RC] ASDIRECTED Care 03/06/21 04:14 Active Chest 2V [CR] Stat Exams 03/06/21 04:13 Ordered EKG 12 Lead [EK] Stat Ther 03/06/21 04:13 Ordered Labs: Laboratory Tests 03/06/21 03/06/21 03/06/21 Range/Units 04:30 04:40 04:40 WBC 10.40 H (5.00-10.00) 10^3/uL RBC 4.16 L (4.50-6.00) 10^6/uL Hgb 12.8 L (13.0-17.0) g/dL Hct 40.0 (40.0-52.0) % MCV 96.2 H (82.0-92.0) fL MCH 30.8 (27.0-31.0) pg MCHC 32.0 (32.0-36.0) g/dL RDW 14.3 (11.5-14.5) % Plt Count 250 (150-400) 10^3/uL MPV 10.8 H (7.4-10.4) fL Immature Gran % (Auto) 0.2 (0.0-5.0) % Neut % (Auto) 61.9 (50.0-70.0) % Lymph % (Auto) 25.4 (20.0-40.0) % [place] % (Auto) 8.7 H (2.0-8.0) % Eos % (Auto) 3.1 H (1.0-3.0) % Baso % (Auto) 0.7 (0.0-1.0) % Neut # (Auto) 6.45 (2.50-7.00) 10^3/uL Lymph # (Auto) 2.64 (1.00-4.00) 10^3/uL [place] # (Auto) 0.90 H (0.10-0.80) 10^3/uL Eos # (Auto) 0.32 H (0.10-0.30) 10^3/uL Baso # (Auto) 0.07 (0.00-0.10) 10^3/uL Immature Gran # (Auto) 0.02 (0.00-0.50) 10^3/uL Sodium 138 (136-145) mmol/L Potassium 4.6 (3.5-5.1) mmol/L Chloride 104 (98-107) mmol/L Carbon Dioxide 23.1 (21.0-32.0) mmol/L Anion Gap 15.5 H (5-15) mmol/L BUN 29 H (7-18) mg/dL Creatinine 1.53 H (0.51-1.17) mg/dL Est Cr Clr Drug Dosing 43.44 mL/min Estimated GFR (MDRD) 46 mL/min Glucose 136 (70-140) mg/dL Lactic Acid 0.8 (0.4-2.0) mmol/L Calcium 8.3 L (8.7-10.3) mg/dL Total Bilirubin 0.3 (0.2-1.0) mg/dL AST 88 H (15-37) U/L ALT 79 H (14-63) U/L Alkaline Phosphatase 132 H (46-116) U/L Troponin I High Sens 27.100 (0-76.000) pg/mL B-Natriuretic Peptide (0-100) pg/mL Total Protein 6.9 (6.4-8.2) g/dL Albumin 3.18 L (3.40-5.00) g/dL 03/06/21 Range/Units 04:40 WBC (5.00-10.00) 10^3/uL RBC (4.50-6.00) 10^6/uL Hgb (13.0-17.0) g/dL Hct (40.0-52.0) % MCV (82.0-92.0) fL MCH (27.0-31.0) pg MCHC (32.0-36.0) g/dL RDW (11.5-14.5) % Plt Count (150-400) 10^3/uL MPV (7.4-10.4) fL Immature Gran % (Auto) (0.0-5.0) % Neut % (Auto) (50.0-70.0) % Lymph % (Auto) (20.0-40.0) % [place] % (Auto) (2.0-8.0) % Eos % (Auto) (1.0-3.0) % Baso % (Auto) (0.0-1.0) % Neut # (Auto) (2.50-7.00) 10^3/uL Lymph # (Auto) (1.00-4.00) 10^3/uL [place] # (Auto) (0.10-0.80) 10^3/uL Eos # (Auto) (0.10-0.30) 10^3/uL Baso # (Auto) (0.00-0.10) 10^3/uL Immature Gran # (Auto) (0.00-0.50) 10^3/uL Sodium (136-145) mmol/L Potassium (3.5-5.1) mmol/L Chloride (98-107) mmol/L Carbon Dioxide (21.0-32.0) mmol/L Anion Gap (5-15) mmol/L BUN (7-18) mg/dL Creatinine (0.51-1.17) mg/dL Est Cr Clr Drug Dosing mL/min Estimated GFR (MDRD) mL/min Glucose (70-140) mg/dL Lactic Acid (0.4-2.0) mmol/L Calcium (8.7-10.3) mg/dL Total Bilirubin (0.2-1.0) mg/dL AST (15-37) U/L ALT (14-63) U/L Alkaline Phosphatase (46-116) U/L Troponin I High Sens (0-76.000) pg/mL B-Natriuretic Peptide 1700 H (0-100) pg/mL Total Protein (6.4-8.2) g/dL Albumin (3.40-5.00) g/dL Meds: Medications Discontinued Medications Generic Name Dose Route Start Last Admin Trade Name Freq PRN Reason Stop Dose Admin Albuterol/Ipratropium 3 ml 03/06/21 04:14 03/06/21 04:16 Albuterol/Ipratropium 3.0-0.5 Mg/3 Ml Neb Soln NEB 03/06/21 04:15 3 ml ONETIME ONE Administration Sodium Chloride 1,000 mls @ 999 mls/hr 03/06/21 04:14 03/06/21 05:35 Normal Saline IV 03/06/21 05:14 Not Given .BOLUS ONE Methylprednisolone Sodium Succinate 125 mg 03/06/21 05:20 03/06/21 05:35 Methylprednisolone Sodium Succinate 125 Mg/2 Ml Sdv IVPUSH 03/06/21 05:21 125 mg ONETIME ONE Administration - Re-Assessments/Exams Free Text/Narrative Re-Assessment/Exam: 03/06/21 05:32 EKG shows NSR, there are subtle ST elevations in V1 and V2 but only 1mm. Troponin is negative. BNP is 1700 with no previous done here but we did find records of 303 and 3700 over a year ago. CXR shows possible slight effusion in right lung base and moderate on left. Waiting on report as PACS was down for awhile tonight. I don't see definite infiltrates but patient has been hospitalized several times in last couple years with pneumonia. He says this doesn't feel like pneumonia today. CBC okay. Lactic acid and troponin are normal. BUN and Creat are chronically elevated but at baseline. He feels quite a bit better after the DuoNeb and doesn't have that at home. He has Lasix that he used to take daily but hasn't for quite awhile. He can take one at home. We discussed findings and treatment options. He doesn't want to be hospitalized if possible. 03/06/21 05:57 Waiting on xray report as PACS is up now. 03/06/21 06:15 CXR reports Cardiomegaly with pleural effusion; and infiltrates vs edema. Based on labs I feel more likely edema. Discussed with patient and he will take the Lasix and Prednisone as well as Duonebs (will get the Duoneb machine today). He will see Dr. Stringer tomorrow unless he worsens and will come back to ER. He is feeling a lot better after the DuoNeb and is discharged to home in stable condition. Departure - Departure Time of Disposition: 06:06 Disposition: Home, Self-Care 01 Condition: Good Clinical Impression: COPD exacerbation Acute exacerbation of CHF (congestive heart failure) Qualifiers: Heart failure type: unspecified Qualified Code(s): I50.9 - Heart failure, unspecified Forms: ED Department Discharge Additional Instructions: Take your Lasix when you get home. Continue daily as prescribed until changed by your PCP. Use the DuoNebs as directed when needed. Continue your inhalers and other medications as directed. Follow up with Dr. Stringer tomorrow for recheck. Return to ER if worsening. Sepsis Event Note (ED) - Evaluation Sepsis Screening Result: No Definite Risk - Focused Exam Vital Signs: Vital Signs Temp Pulse Resp BP Pulse Ox Pulse Ox 03/06/21 05:15 90 23 H 137/89 94 L 03/06/21 04:34 86 23 H 137/91 H 95 03/06/21 04:14 80 95 03/06/21 04:00 97.2 F 86 29 H 133/87 95 - My Orders Last 24 Hours: My Active Orders 03/06/21 04:13 Chest 2V [CR] Stat EKG 12 Lead [EK] Stat 03/06/21 04:14 EKG Documentation Completion [RC] ASDIRECTED RT Aerosol Therapy [RC] ASDIRECTED - Assessment/Plan Last 24 Hours: My Active Orders 03/06/21 04:13 Chest 2V [CR] Stat EKG 12 Lead [EK] Stat 03/06/21 04:14 EKG Documentation Completion [RC] ASDIRECTED RT Aerosol Therapy [RC] ASDIRECTED
[2021-03-06 04:59] LABS: ANION GAP 15.5 mmol/L (5-15)
[2021-03-06] MEDS ORDERED: methylPREDNISolone Sodium Succinate 125 MG/2 ML SDV IVPUSH ONE (05:20)
[2021-03-06 06:09] VITALS: BP 126/80; PULSE 86
== END 2021-03-06 06:15 | disposition home or self-care (01) ==
LOC: KA.ED 04:00
DX: J44.1 Chronic obstructive pulmonary disease with (acute) exacerbation (principal); I11.0 Hypertensive heart disease with heart failure; I50.9 Heart failure, unspecified; I25.10 Atherosclerotic heart disease of native coronary artery without angina pectoris; I25.2 Old myocardial infarction; M19.90 Unspecified osteoarthritis, unspecified site; E11.40 Type 2 diabetes mellitus with diabetic neuropathy, unspecified; F17.210 Nicotine dependence, cigarettes, uncomplicated; Z88.8 Allergy status to other drugs, medicaments and biological substances; Z79.82 Long term (current) use of aspirin; Z79.899 Other long term (current) drug therapy
CPT/HCPCS: 36415; 71046; 80053; 83605; 83880; 84484; 85025; 93005; 94640; 96374; 99284; 99285-25; J2930; J7620-GY

== ENCOUNTER 2021-03-14 09:38 | Emergency (ER) | payer MEDICARE, OTHER ==
[2021-03-14] MEDS ORDERED: Albuterol/Ipratropium 3.0-0.5 MG/3 ML Neb Soln NEB ONE (10:16)
--- NOTE | 2021-03-14 10:19 | EDM.PDOC ---
ED HPI GENERAL MEDICAL PROBLEM - General Chief Complaint: Respiratory Problem Stated Complaint: SOB Time Seen by Provider: 03/14/21 10:00 Source of Information: Reports: Patient History Limitations: Reports: No Limitations - History of Present Illness INITIAL COMMENTS - FREE TEXT/NARRATIVE: 65 YO WM PRESENTS TO ER FROM CLINIC COMPLAINING OF SHORTNESS OF BREATH AND CHEST TIGHTNESS WHICH BEGAN AT 1AM TODAY. PT REPORTS HE WENT TO BED AND WOKE UP FEELING SHORT OF BREATH. PT REPORTS USING HIS ALBUTEROL NEB WITHOUT RELIEF. PT WENT TO CLINIC FOR EVALUATION BUT WAS SENT TO ER FOR FURTHER EVALUATION AND TREATMENT. PT DENIES FEVER/CHILLS, NO NAUSEA/VOMITING. PT REPORTS A NONPRODUCTIVE COUGH. PT SAO2 ON ARRIVAL WAS 91% RA AND WAS PLACED ON 2L OF OXYGEN WITH SOME IMPROVEMENT IN HIS CHEST TIGHTNESS AND SHORTNESS OF BREATH. PT DENIES ANY LOWER EXTREMITY SWELLING OR DIFFICULTY BUTTONING HIS PAINTS. PT WAS IN ER 1 WEEK AGO FOR SIMILAR AND DIAGNOSED WITH MILD CHF AND COPD EXACERBATION. PT WAS DISCHARGED ON PREDNISONE, DUONEBS AND LASIX AT THAT TIME. Onset: Today Onset Date: 03/14/21 Onset Time: 01:00 Location: Reports: Chest Quality: Reports: Pressure Improves with: Reports: None Worsens with: Reports: None Associated Symptoms: Reports: Chest Pain, Cough, Shortness of Breath. Denies: cough w sputum, Diaphoresis, Fever/Chills, Nausea/Vomiting, Syncope chest Pain Score (Numeric/FACES): 4 - Related Data Allergies Allergy/AdvReac Type Severity Reaction Status Date / Time varenicline [From Chantix] Allergy Vomiting Verified 03/14/21 10:09 Home Meds: Home Meds Aspirin [Halfprin] 81 mg PO DAILY 02/05/19 [History] Budesonide/Formoterol [Symbicort 160-4.5 MCG] 2 puff INH BID 02/05/19 [History] Albuterol Sulfate [Albuterol Sulfate HFA] 2 puff INH BID PRN 03/06/21 [History] Nitroglycerin 0.4 mg SL ASDIRECTED 03/14/21 [History] Past Medical History HEENT History: Reports: Hard of Hearing, Impaired Vision Cardiovascular History: Reports: Bypass, CAD, Heart Failure, Hypertension, [place] Respiratory History: Reports: Bronchitis, Recurrent, COPD, Pneumonia, Recurrent, SOB, Other (See Below) Other Respiratory History: smoker Gastrointestinal History: Reports: GERD, Jaundice Genitourinary History: Reports: BPH, Renal Disease Musculoskeletal History: Reports: Arthritis Other Musculoskeletal History: fractured neck 3 places in 2009 Neurological History: Reports: Migraines, Neuropathy, Diabetic Psychiatric History: Reports: Anxiety, Depression Endocrine/Metabolic History: Reports: Diabetes, Type II - Infectious Disease History Infectious Disease History: Reports: Chicken Pox, Hepatitis B, Measles, Mumps, Shingles - Past Surgical History HEENT Surgical History: Reports: None Cardiovascular Surgical History: Reports: None Respiratory Surgical History: Reports: Other (See Below) Other Respiratory Surgeries/Procedures: right lobectomy GI Surgical History: Reports: Colonoscopy Musculoskeletal Surgical History: Reports: Other (See Below) Other Musculoskeletal Surgeries/Procedures:: cervical spine Social & Family History - Family History Family Medical History: No Pertinent Family History - Tobacco Use Tobacco Use Status *Q: Current Every Day Tobacco User Years of Tobacco use: 40 Packs/Tins Daily: 0.5 - Caffeine Use Caffeine Use: Reports: Coffee Caffeine Use Comment: did not ask - Alcohol Use Days Per Week of Alcohol Use: 1 Number of Drinks Per Day: 1 Total Drinks Per Week: 1 - Recreational Drug Use Recreational Drug Use: Yes Drug Use in Last 12 Months: Yes Recreational Drug Type: Reports: Marijuana/Hashish Recreational Drug Use Frequency: Weekly ED ROS GENERAL - Review of Systems Review Of Systems: See Below Constitutional: Reports: No Symptoms HEENT: Reports: No Symptoms Respiratory: Reports: Shortness of Breath, Cough Cardiovascular: Reports: Chest Pain Endocrine: Reports: No Symptoms GI/Abdominal: Reports: No Symptoms : Reports: No Symptoms Musculoskeletal: Reports: No Symptoms Skin: Reports: No Symptoms Neurological: Reports: No Symptoms Psychiatric: Reports: No Symptoms Hematologic/Lymphatic: Reports: No Symptoms Immunologic: Reports: No Symptoms ED EXAM, GENERAL - Physical Exam Exam: See Below Exam Limited By: No Limitations General Appearance: Alert, WD/WN, No Apparent Distress Eye Exam: Bilateral Eye: EOMI, PERRL Head: Atraumatic, Normocephalic Neck: Normal Inspection, Supple, Non-Tender, Full Range of Motion Respiratory/Chest: No Respiratory Distress, Chest Non-Tender, Crackles, Wheezing, Accessory Muscle Use Cardiovascular: Normal Peripheral Pulses, Regular Rate, Rhythm, No Edema, No Gallop, No JVD, No Rub, Systolic Murmur GI/Abdominal: Normal Bowel Sounds, Soft, Non-Tender, No Organomegaly, No Distention, No Abnormal Bruit, No Mass Back Exam: Normal Inspection, Full Range of Motion Extremities: Normal Inspection, Normal Range of Motion, Non-Tender, Normal Capillary Refill, No Pedal Edema Neurological: Alert, Oriented, CN II-XII Intact, Normal Cognition, Normal Gait, Normal Reflexes, No Motor/Sensory Deficits Psychiatric: Normal Affect, Normal Mood Skin Exam: Warm, Dry, Intact, Normal Color, No Rash Lymphatic: No Adenopathy #1 Interpretation EKG Date: 03/14/21 Time: 09:41 Rhythm: NSR Rate (Beats/Min): 91 [place]: Normal P-Wave: Present QRS: Normal ST-T: Normal QT: Normal Course - Vital Signs Last Recorded V/S: Last Vital Signs Temp 97.1 F 03/14/21 09:50 Pulse 104 H 03/14/21 10:50 Resp 20 03/14/21 10:50 BP 137/78 03/14/21 10:50 Pulse Ox 97 03/14/21 10:50 - Orders/Labs/Meds Orders: Active Orders 24 hr Category Date Time Status EKG Documentation Completion [RC] ASDIRECTED Care 03/14/21 09:49 Active RT Aerosol Therapy [RC] ASDIRECTED Care 03/14/21 10:16 Active Heparin Sodium/D5W 250 ml Med 03/14/21 11:00 Active IV TITRATE Nitroglycerin/D5W [Nitroglycerin 50 MG/D5W 250 ML] Med 03/14/21 11:15 Active 50 mg in 250 ml IV TITRATE EKG 12 Lead [EK] Stat Ther 03/14/21 09:49 Ordered Medication Orders Heparin Sodium/Dextrose () 250 mls @ 8.785 mls/hr IV TITRATE MELL; Protocol Last Admin: 03/14/21 11:08 Dose: 12.02 units/kg/hr, 8.8 mls/hr Documented by: MICHAEL Cosigned by: JULITA Nitroglycerin/Dextrose (Nitroglycerin 50 Mg/D5w 250 Ml) 50 mg in 250 mls @ 3 mls/hr IV TITRATE MELL Last Admin: 03/14/21 11:23 Dose: 10 mcg/min, 3 mls/hr Documented by: MICHAEL Labs: Laboratory Tests 03/14/21 03/14/21 03/14/21 Range/Units 09:55 09:55 09:55 WBC 13.78 H (5.00-10.00) 10^3/uL RBC 4.11 L (4.50-6.00) 10^6/uL Hgb 12.6 L (13.0-17.0) g/dL Hct 40.0 (40.0-52.0) % MCV 97.3 H (82.0-92.0) fL MCH 30.7 (27.0-31.0) pg MCHC 31.5 L (32.0-36.0) g/dL RDW 14.8 H (11.5-14.5) % Plt Count 258 (150-400) 10^3/uL MPV 10.9 H (7.4-10.4) fL Immature Gran % (Auto) 0.1 (0.0-5.0) % Neut % (Auto) 78.4 H (50.0-70.0) % Lymph % (Auto) 12.0 L (20.0-40.0) % [place] % (Auto) 8.4 H (2.0-8.0) % Eos % (Auto) 0.9 L (1.0-3.0) % Baso % (Auto) 0.2 (0.0-1.0) % Neut # (Auto) 10.79 H (2.50-7.00) 10^3/uL Lymph # (Auto) 1.66 (1.00-4.00) 10^3/uL [place] # (Auto) 1.16 H (0.10-0.80) 10^3/uL Eos # (Auto) 0.12 (0.10-0.30) 10^3/uL Baso # (Auto) 0.03 (0.00-0.10) 10^3/uL Immature Gran # (Auto) 0.02 (0.00-0.50) 10^3/uL Sodium 136 (136-145) mmol/L Potassium 5.0 (3.5-5.1) mmol/L Chloride 101 (98-107) mmol/L Carbon Dioxide 27.0 (21.0-32.0) mmol/L Anion Gap 13.0 (5-15) mmol/L BUN 37 H (7-18) mg/dL Creatinine 1.62 H (0.51-1.17) mg/dL Est Cr Clr Drug Dosing TNP Estimated GFR (MDRD) 43 mL/min Glucose 230 H (70-140) mg/dL Calcium 8.3 L (8.7-10.3) mg/dL Magnesium 1.9 (1.8-2.4) mg/dL Total Bilirubin 0.6 (0.2-1.0) mg/dL AST 38 H (15-37) U/L ALT 72 H (14-63) U/L Alkaline Phosphatase 136 H (46-116) U/L Creatine Kinase 70 (26-276) U/L CK-MB (CK-2) 3.54 (0.00-3.60) ng/mL Troponin I High Sens 1102.200 H* (0-76.000) pg/mL B-Natriuretic Peptide 2100 H (0-100) pg/mL Total Protein 6.6 (6.4-8.2) g/dL Albumin 3.05 L (3.40-5.00) g/dL Meds: Medications Generic Name Dose Route Start Last Admin Trade Name Freq PRN Reason Stop Dose Admin Heparin Sodium/Dextrose 250 mls @ 8.785 mls/hr 03/14/21 11:00 03/14/21 11:08 IV 12.02 units/kg/hr TITRATE MELL 8.8 mls/hr Administration Protocol 12 UNITS/KG/HR Nitroglycerin/Dextrose 50 mg in 250 mls @ 3 mls/hr 03/14/21 11:15 03/14/21 11:23 Nitroglycerin 50 Mg/D5w 250 Ml IV 10 mcg/min TITRATE MELL 3 mls/hr Administration 10 MCG/MIN Discontinued Medications Generic Name Dose Route Start Last Admin Trade Name Freq PRN Reason Stop Dose Admin Albuterol/Ipratropium 3 ml 03/14/21 10:16 03/14/21 10:17 Albuterol/Ipratropium 3.0-0.5 Mg/3 Ml Neb Soln NEB 03/14/21 10:17 3 ml ONETIME ONE Administration Aspirin 243 mg 03/14/21 10:32 03/14/21 10:40 Aspirin 81 Mg Tab.Chew PO 03/14/21 10:33 243 mg ONETIME ONE Administration Furosemide 40 mg 03/14/21 10:32 03/14/21 10:43 Furosemide 40 Mg/4 Ml Vial IVPUSH 03/14/21 10:33 40 mg NOW ONE Administration Heparin Sodium (Porcine) 4,000 units 03/14/21 10:49 03/14/21 11:00 Heparin Sodium 5,000 Units/Ml Vial IVPUSH 03/14/21 10:50 4,000 units ONETIME ONE Administration Nitroglycerin 1 gm 03/14/21 10:39 03/14/21 10:44 Nitroglycerin 2% Oint 1 Gm Ud Packet TOP 03/14/21 10:40 0.5 gm ONETIME ONE Administration - Radiology Interpretation Free Text/Narrative:: CXR- CENTRAL VENOUS CONGESTION, CM, BILATERAL PLEURAL EFFUSIONS - Re-Assessments/Exams Free Text/Narrative Re-Assessment/Exam: 03/14/21 10:[address] HEARD- WHO STATES HE HAS NO BEDS IN HOUSE BUT WILL CALL ME AFTER DISCUSSION WITH GEOGRAPHIC INFORMATION SYSTEMS ENGINEER. PT STARTED ON A HEPARIN GTT AFTER GIVEN BOLUS OF 4000U Departure - Departure Time of Disposition: 11:08 Disposition: DC/Tfer to Acute Hospital 02 Condition: Critical Clinical Impression: Non-STEMI (non-ST elevated myocardial infarction) Acute exacerbation of CHF (congestive heart failure) Qualifiers: Heart failure type: unspecified Qualified Code(s): I50.9 - Heart failure, unspecified - Discharge Information Referrals: Yanelis Maldonado MD [Primary Care Provider] - Forms: ED Department Discharge, Interfacility Transfer MARIANA Sepsis Event Note (ED) - Evaluation Sepsis Screening Result: No Definite Risk - Focused Exam Vital Signs: Vital Signs Temp Pulse Resp BP Pulse Ox 03/14/21 10:50 104 H 20 137/78 97 03/14/21 10:30 101 H 26 H 114/88 27 L 03/14/21 10:15 90 23 H 125/75 95 03/14/21 10:00 94 27 H 126/90 99 03/14/21 09:50 97.1 F 96 30 H 135/76 97 - My Orders Last 24 Hours: My Active Orders 03/14/21 09:49 EKG Documentation Completion [RC] ASDIRECTED EKG 12 Lead [EK] Stat 03/14/21 10:16 RT Aerosol Therapy [RC] ASDIRECTED 03/14/21 11:00 Heparin Sodium/D5W 250 ml IV TITRATE 03/14/21 11:15 Nitroglycerin/D5W [Nitroglycerin 50 MG/D5W 250 ML] 50 mg in 250 ml IV TITRATE - Assessment/Plan Last 24 Hours: My Active Orders 03/14/21 09:49 EKG Documentation Completion [RC] ASDIRECTED EKG 12 Lead [EK] Stat 03/14/21 10:16 RT Aerosol Therapy [RC] ASDIRECTED 03/14/21 11:00 Heparin Sodium/D5W 250 ml IV TITRATE 03/14/21 11:15 Nitroglycerin/D5W [Nitroglycerin 50 MG/D5W 250 ML] 50 mg in 250 ml IV TITRATE Assessment:: 1. NONSTEMI 2. CHF EXACERBATION Plan: 1. TRANSFER TO [facility] 2. NITRO GTT STARTED @10UG 3. HEPARIN GTT 12MG/KG/HR 4. SUPPLEMENTAL O2 5. MORPHINE 2-4MG IV PRN PAIN 6. SUPPORTIVE CARE
[2021-03-14] MEDS ORDERED: Aspirin 81 MG Tab.Chew PO ONE (10:32)
[2021-03-14] MEDS ORDERED: Furosemide 40 MG/4 ML VIAL IVPUSH ONE (10:32)
[2021-03-14 10:33] LABS: CHLORIDE,CL 101 mmol/L (98-107); SODIUM,NA 136 mmol/L (136-145)
--- NOTE | 2021-03-14 10:33 | CR ---
[id number] RAD/RAD Chest PA or AP 1V EXAM: RAD Chest PA or AP 1V INDICATION: CHEST PAIN. COMPARISON: March 06, 2021. DISCUSSION/IMPRESSION: Cardiomegaly and central vascular congestion. Median sternotomy. Those findings are similar to the prior examination. Slightly increased fluid retention in the chest compared to the prior examination. Findings nonocclusive bilateral pleural effusions. Right-sided effusion was not as well-visualized on the prior examination. Persistent basal predominant interstitial pulmonary edema. No evidence of parenchymal edema at this time. Daren Lyons MD 03/14/21 1032 Thank you for allowing us to participate in the care of your patient.
[2021-03-14] MEDS ORDERED: Nitroglycerin 2% Oint 1 GM UD Packet TOP ONE (10:39)
[2021-03-14] MEDS ORDERED: Heparin Sodium 5,000 Units/ML Vial IVPUSH ONE (10:49)
[2021-03-14] MEDS ORDERED: Heparin Sodium/D5W 250 ML IV SCH (11:00)
[2021-03-14 12:04] VITALS: BP 133/78; PULSE 102
== END 2021-03-14 12:00 ==
LOC: KA.ED 09:38
DX: I21.4 Non-ST elevation (NSTEMI) myocardial infarction (principal); I11.0 Hypertensive heart disease with heart failure; I50.9 Heart failure, unspecified; I25.10 Atherosclerotic heart disease of native coronary artery without angina pectoris; J44.9 Chronic obstructive pulmonary disease, unspecified; M19.90 Unspecified osteoarthritis, unspecified site; E11.40 Type 2 diabetes mellitus with diabetic neuropathy, unspecified; F17.210 Nicotine dependence, cigarettes, uncomplicated; Z88.8 Allergy status to other drugs, medicaments and biological substances; Z79.82 Long term (current) use of aspirin; Z79.899 Other long term (current) drug therapy
CPT/HCPCS: 36415; 71045; 80053; 82550; 82553; 83735; 83880; 84484; 85025; 93005; 94640; 96365; 96368; 96375; 99284; 99285-25; A9270-GY; J1644; J1940; J7620-GY

== ENCOUNTER 2021-04-08 05:15 | Emergency (ER) | payer MEDICARE, OTHER ==
[2021-04-08] MEDS ORDERED: Aspirin 81 MG Tab.Chew PO ONE (05:37)
[2021-04-08] MEDS ORDERED: Aspirin 81 MG Tab.Chew ONE (05:38)
--- NOTE | 2021-04-08 05:39 | EDM.PDOC ---
ED HPI GENERAL MEDICAL PROBLEM - General Chief Complaint: Chest Pain Stated Complaint: chest pressure Time Seen by Provider: 04/08/21 05:21 Source of Information: Reports: Patient, EMS History Limitations: Reports: No Limitations - History of Present Illness INITIAL COMMENTS - FREE TEXT/NARRATIVE: Patient presents with chest pressure and dyspnea that awakened him between [id number] (3.5-4.5 hours ago). The dyspnea was the biggest problem. He did a DuoNeb, which he routinely does 2-3 times a day, but didn't help much. He had two stents a few weeks ago and had CABG x 4 vessel previously. He smokes 1/2 ppd. He denies pain in neck, jaw, arm; denies diaphoresis, nausea. He is lightheaded. He says the chest pain/pressure is gone now and the dyspnea is improving. He is on 2 liters of O2 but EMS reports sats were 98% on RA prior to him requesting oxygen. Right Upper Chest Pain Score (Numeric/FACES): 4 - Related Data Allergies Allergy/AdvReac Type Severity Reaction Status Date / Time varenicline [From Chantix] Allergy Vomiting Verified 04/08/21 05:26 Home Meds: Home Meds Aspirin [Halfprin] 81 mg PO DAILY 02/05/19 [History] Budesonide/Formoterol [Symbicort 160-4.5 MCG] 2 puff INH BID 02/05/19 [History] Albuterol Sulfate [Albuterol Sulfate HFA] 2 puff INH BID PRN 03/06/21 [History] Nitroglycerin 0.4 mg SL ASDIRECTED 03/14/21 [History] Albuterol/Ipratropium [DuoNeb 3.0-0.5 MG/3 ML] 3 ml .XX TID PRN 04/08/21 [History] Furosemide [Lasix] 20 mg PO DAILY 04/08/21 [History] Rosuvastatin [Crestor] 20 mg PO DAILY 04/08/21 [History] carvediloL [Carvedilol] 3.125 mg PO BID 04/08/21 [History] Past Medical History HEENT History: Reports: Hard of Hearing, Impaired Vision Cardiovascular History: Reports: Bypass, CAD, Heart Failure, Hypertension, [place] Respiratory History: Reports: Bronchitis, Recurrent, COPD, Pneumonia, Recurrent, SOB, Other (See Below) Other Respiratory History: smoker Gastrointestinal History: Reports: GERD, Jaundice Genitourinary History: Reports: BPH, Renal Disease Musculoskeletal History: Reports: Arthritis Other Musculoskeletal History: fractured neck 3 places in 2008 Neurological History: Reports: Migraines, Neuropathy, Diabetic Psychiatric History: Reports: Anxiety, Depression Endocrine/Metabolic History: Reports: Diabetes, Type II - Infectious Disease History Infectious Disease History: Reports: Chicken Pox, Hepatitis B, Measles, Mumps, Shingles - Past Surgical History HEENT Surgical History: Reports: None Cardiovascular Surgical History: Reports: None Respiratory Surgical History: Reports: Other (See Below) Other Respiratory Surgeries/Procedures: right lobectomy GI Surgical History: Reports: Colonoscopy Musculoskeletal Surgical History: Reports: Other (See Below) Other Musculoskeletal Surgeries/Procedures:: cervical spine Social & Family History - Family History Family Medical History: No Pertinent Family History - Caffeine Use Caffeine Use: Reports: Coffee Caffeine Use Comment: did not ask ED ROS GENERAL - Review of Systems Review Of Systems: See Below Constitutional: Denies: Fever, Chills, Diaphoresis HEENT: Denies: Throat Pain, Vision Change Respiratory: Reports: Shortness of Breath, Cough (chronic) Cardiovascular: Reports: Chest Pain, Lightheadedness. Denies: Syncope GI/Abdominal: Denies: Abdominal Pain, Diarrhea, Nausea, Vomiting : Reports: No Symptoms Musculoskeletal: Denies: Neck Pain, Shoulder Pain, Arm Pain, Back Pain Skin: Denies: Cyanosis, Jaundice, Mottled, Pallor, Diaphoresis Neurological: Denies: Confusion, Dizziness, Headache, Seizure, Syncope, Trouble Speaking, Difficulty Walking Psychiatric: Denies: Agitation, Anxiety, Confusion ED EXAM, GENERAL - Physical Exam Exam: See Below Exam Limited By: No Limitations General Appearance: Alert, WD/WN, No Apparent Distress Eye Exam: Bilateral Eye: EOMI, Normal Inspection, PERRL Ears: Normal External Exam, Hearing Grossly Normal Nose: Normal Inspection, No Blood Throat/Mouth: Normal Inspection, Normal Lips, Normal Voice, No Airway Compromise Head: Atraumatic, Normocephalic Neck: Normal Inspection, Full Range of Motion Respiratory/Chest: No Respiratory Distress, Crackles (bilat bases; worse on left). No: Rhonchi, Wheezing, Stridor Cardiovascular: Regular Rate, Rhythm, No Murmur Back Exam: Normal Inspection, Full Range of Motion. No: CVA Tenderness (L), CVA Tenderness (R) Extremities: Normal Inspection, Normal Range of Motion Neurological: Alert, Oriented, Normal Cognition, No Motor/Sensory Deficits Psychiatric: Normal Affect, Normal Mood Skin Exam: Warm, Dry, Intact, Normal Color, No Rash #1 Interpretation EKG Date: 04/08/21 Rhythm: NSR Rate (Beats/Min): 75 [place]: Normal P-Wave: Present QRS: Normal ST-T: Normal QT: Normal Course - Vital Signs Last Recorded V/S: Last Vital Signs Temp 96.5 F L 04/08/21 05:25 Pulse 66 04/08/21 07:00 Resp 20 04/08/21 07:00 BP 115/78 04/08/21 07:00 Pulse Ox 97 04/08/21 07:00 - Orders/Labs/Meds Orders: Active Orders 24 hr Category Date Time Status EKG Documentation Completion [RC] ASDIRECTED Care 04/08/21 05:42 Ordered EKG 12 Lead [EK] Stat Ther 04/08/21 05:42 Ordered Labs: Laboratory Tests 04/08/21 04/08/21 04/08/21 Range/Units 05:38 05:38 05:38 WBC 7.62 (5.00-10.00) 10^3/uL RBC 4.00 L (4.50-6.00) 10^6/uL Hgb 12.3 L (13.0-17.0) g/dL Hct 38.4 L (40.0-52.0) % MCV 96.0 H (82.0-92.0) fL MCH 30.8 (27.0-31.0) pg MCHC 32.0 (32.0-36.0) g/dL RDW 13.9 (11.5-14.5) % Plt Count 201 (150-400) 10^3/uL MPV 11.6 H (7.4-10.4) fL Immature Gran % (Auto) 0.1 (0.0-5.0) % Neut % (Auto) 62.1 (50.0-70.0) % Lymph % (Auto) 24.0 (20.0-40.0) % [place] % (Auto) 10.0 H (2.0-8.0) % Eos % (Auto) 3.1 H (1.0-3.0) % Baso % (Auto) 0.7 (0.0-1.0) % Neut # (Auto) 4.73 (2.50-7.00) 10^3/uL Lymph # (Auto) 1.83 (1.00-4.00) 10^3/uL [place] # (Auto) 0.76 (0.10-0.80) 10^3/uL Eos # (Auto) 0.24 (0.10-0.30) 10^3/uL Baso # (Auto) 0.05 (0.00-0.10) 10^3/uL Immature Gran # (Auto) 0.01 (0.00-0.50) 10^3/uL Sodium 138 (136-145) mmol/L Potassium 4.3 (3.5-5.1) mmol/L Chloride 102 (98-107) mmol/L Carbon Dioxide 28.1 (21.0-32.0) mmol/L Anion Gap 12.2 (5-15) mmol/L BUN 26 H (7-18) mg/dL Creatinine 1.56 H (0.51-1.17) mg/dL Est Cr Clr Drug Dosing 45.06 mL/min Estimated GFR (MDRD) 45 mL/min Glucose 236 H (70-140) mg/dL Calcium 8.2 L (8.7-10.3) mg/dL Total Bilirubin 0.3 (0.2-1.0) mg/dL AST 65 H (15-37) U/L ALT 83 H (14-63) U/L Alkaline Phosphatase 154 H (46-116) U/L Troponin I High Sens 25.000 (0-76.000) pg/mL B-Natriuretic Peptide 2430 H (0-100) pg/mL Total Protein 6.6 (6.4-8.2) g/dL Albumin 2.99 L (3.40-5.00) g/dL Meds: Medications Discontinued Medications Generic Name Dose Route Start Last Admin Trade Name Freq PRN Reason Stop Dose Admin Aspirin 324 mg 04/08/21 05:37 04/08/21 05:39 Aspirin 81 Mg Tab.Chew PO 04/08/21 05:38 324 mg ONETIME ONE Administration Aspirin Confirm 04/08/21 05:38 04/08/21 05:53 Aspirin 81 Mg Tab.Chew Administered 04/08/21 05:39 Not Given Dose 324 mg .ROUTE .STK-MED ONE Furosemide 40 mg 04/08/21 07:36 04/08/21 07:47 Furosemide 40 Mg/4 Ml Vial IVPUSH 04/08/21 07:37 40 mg NOW ONE Administration - Re-Assessments/Exams Free Text/Narrative Re-Assessment/Exam: 04/08/21 08:32 CXR shows cardiomegaly with pulmonary edema. BNP is 2430, up from 2100 and 1700 recently on comparison. EKG and troponin okay. 04/08/21 09:18 Following Lasix IV 40 mg, patient is breathing easier. Sats 94-96% on RA with RR 16 while resting. He says he is feeling better. I discussed findings and recommendations with him. Patient discharged to home in stable condition. Departure - Departure Time of Disposition: 09:15 Disposition: Home, Self-Care 01 Condition: Good Clinical Impression: Pulmonary edema cardiac cause CHF (congestive heart failure) Qualifiers: Heart failure type: unspecified Heart failure chronicity: chronic Qualified Code(s): I50.9 - Heart failure, unspecified Dyspnea Qualifiers: Dyspnea type: shortness of breath Qualified Code(s): R06.02 - Shortness of breath Instructions: Shortness of Breath, Adult, Heart Failure, Diagnosis, [id number] Forms: ED Department Discharge Additional Instructions: Take your furosemide (Lasix) twice daily for the next 5 days then follow up with your PCP for recheck. You can take it in the morning and then again early afternoon if you prefer. Taking in the evening may cause you to be up to urinate often during the night. Call on Saturday to schedule an appointment with Dr. Stringer in about 5 days from now. If worsening go to clinic or ER as needed. Sepsis Event Note (ED) - Focused Exam Vital Signs: Vital Signs Temp Pulse Resp BP Pulse Ox 04/08/21 07:00 66 20 115/78 97 04/08/21 06:30 73 24 H 108/67 97 04/08/21 06:15 70 26 H 120/78 97 04/08/21 06:00 76 20 108/82 98 04/08/21 05:40 76 16 115/81 98 04/08/21 05:25 96.5 F L 75 22 H 111/73 97 - My Orders Last 24 Hours: My Active Orders 04/08/21 05:42 EKG Documentation Completion [RC] ASDIRECTED EKG 12 Lead [EK] Stat - Assessment/Plan Last 24 Hours: My Active Orders 04/08/21 05:42 EKG Documentation Completion [RC] ASDIRECTED EKG 12 Lead [EK] Stat
[2021-04-08 06:16] LABS: ANION GAP 12.2 mmol/L (5-15)
[2021-04-08] MEDS ORDERED: Furosemide 40 MG/4 ML VIAL IVPUSH ONE (07:36)
--- NOTE | 2021-04-08 08:35 | CR ---
[id number] RAD/RAD Chest PA or AP 1V EXAM: SINGLE VIEW CHEST. INDICATION: SHORTNESS OF BREATH COMPARISON: CORRELATION IS MADE WITH MARCH 14, 2021 FINDINGS: There is significant pulmonary edema There are small bilateral effusions The cardiac silhouette is stable Cardiac surgical changes are seen Cervical spine changes also are seen IMPRESSION: MODERATE CONGESTIVE HEART FAILURE Henri Booth MD 04/08/21 0833 Thank you for allowing us to participate in the care of your patient.
[2021-04-08 10:28] VITALS: BP 113/75; PULSE 74
== END 2021-04-08 09:50 | disposition home or self-care (01) ==
LOC: KA.ED 05:15
DX: I11.0 Hypertensive heart disease with heart failure (principal); I50.9 Heart failure, unspecified; I25.10 Atherosclerotic heart disease of native coronary artery without angina pectoris; I25.2 Old myocardial infarction; J44.9 Chronic obstructive pulmonary disease, unspecified; E11.40 Type 2 diabetes mellitus with diabetic neuropathy, unspecified; Z95.1 Presence of aortocoronary bypass graft; Z79.82 Long term (current) use of aspirin; Z88.8 Allergy status to other drugs, medicaments and biological substances; Z79.899 Other long term (current) drug therapy
CPT/HCPCS: 36415; 71045; 80053; 83880; 84484; 85025; 93005; 96374; 99284; 99285-25; A9270-GY; J1940

== ENCOUNTER 2021-09-21 11:42 | Inpatient (IN) | payer MEDICARE, OTHER ==
[2021-09-21] MEDS ORDERED: Ondansetron 4 MG/2 ML SDV IVPUSH ONE (12:02)
[2021-09-21] MEDS ORDERED: Morphine 4 MG/ML VIAL IVPUSH ONE (12:02)
[2021-09-21] MEDS ORDERED: Morphine 4 MG/ML VIAL ONE (12:03)
[2021-09-21] MEDS: Sodium Chloride 0.9% 10 ML Syringe FLUSH PRN ×2 (12:06→12:08)
[2021-09-21] MEDS ORDERED: Furosemide 40 MG/4 ML VIAL IVPUSH ONE ×2 (12:17→19:12)
[2021-09-21 12:34] LABS: PTT,PARTIAL THROMBOPLSTIN TIME 26.7 SEC (22.8-31.4)
[2021-09-21] MEDS ORDERED: Sodium Chloride 0.9% 10 ML Syringe FLUSH PRN (13:10)
[2021-09-21] MEDS ORDERED: Ondansetron 4 MG/2 ML SDV IV PRN (13:10)
[2021-09-21] MEDS ORDERED: Nitroglycerin 0.4 MG Tab.SL SL PRN (19:00)
[2021-09-21] MEDS: Albuterol 8 GM Inhaler INH PRN (21:10)
[2021-09-21] MEDS ORDERED: LORazepam 2 MG/ML SDV IVPUSH ONE (21:52)
[2021-09-21] MEDS: Albuterol/Ipratropium 3.0-0.5 MG/3 ML Neb Soln NEB PRN (22:11)
[2021-09-22 08:11] LABS: ANION GAP 13.2 mmol/L (5-15)
[2021-09-22] MEDS: Rosuvastatin 10 MG Tab PO SCH (08:14)
[2021-09-22] MEDS: Aspirin 81 MG Tab.EC PO SCH (08:14)
[2021-09-22] MEDS ORDERED: Sodium Chloride 0.9% 1,000 ML IV SCH (09:15)
[2021-09-22] MEDS: Insulin Glargine,Hum.Rec.Anlog 100 UNIT/ML 3 ML Pen SUBCUT SCH (09:59)
[2021-09-22] MEDS ORDERED: Glucagon,Human Recombinant 1 MG Vial IM PRN (15:34)
[2021-09-22] MEDS ORDERED: 50% Dextrose in Water 50 ML Syringe IVPUSH PRN (15:34)
[2021-09-22] MEDS: Insulin Lispro 100 Unit/ML 3 ML KwikPen SUBCUT SCH (18:09)
[2021-09-22] MEDS: Albuterol 8 GM Inhaler INH PRN (20:24)
[2021-09-22] MEDS: Albuterol/Ipratropium 3.0-0.5 MG/3 ML Neb Soln NEB PRN (20:30)
[2021-09-22] MEDS ORDERED: Simethicone 80 MG Tab.Chew PO ONE (20:50)
[2021-09-22] MEDS ORDERED: LORazepam 2 MG/ML SDV IVPUSH ONE (20:50)
[2021-09-23] MEDS: Insulin Lispro 100 Unit/ML 3 ML KwikPen SUBCUT SCH ×3 (07:47→19:10)
[2021-09-23 07:57] LABS: ANION GAP 14.3 mmol/L (5-15)
[2021-09-23] MEDS: Insulin Glargine,Hum.Rec.Anlog 100 UNIT/ML 3 ML Pen SUBCUT SCH (08:41)
[2021-09-23] MEDS: Rosuvastatin 10 MG Tab PO SCH (08:41)
[2021-09-23] MEDS: Aspirin 81 MG Tab.EC PO SCH (08:41)
[2021-09-23] MEDS ORDERED: Furosemide 40 MG/4 ML VIAL IVPUSH ONE (10:22)
[2021-09-23] MEDS: Azithromycin 250 MG Tab PO SCH (11:21)
[2021-09-23] MEDS: Albuterol/Ipratropium 3.0-0.5 MG/3 ML Neb Soln NEB PRN (20:33)
[2021-09-23] MEDS ORDERED: Acetaminophen 325 MG Tab PO PRN (20:48)
[2021-09-23] MEDS ORDERED: Melatonin 3 MG Tab PO PRN (21:00)
[2021-09-23] MEDS: Morphine 2 MG/ML SYRINGE IVPUSH PRN (21:02)
[2021-09-24 05:29] VITALS: BP 139/74; PULSE 64
[2021-09-24] MEDS: Morphine 2 MG/ML SYRINGE IVPUSH PRN (07:35)
[2021-09-24] MEDS: Insulin Lispro 100 Unit/ML 3 ML KwikPen SUBCUT SCH ×2 (07:36→11:48)
[2021-09-24] MEDS: Aspirin 81 MG Tab.EC PO SCH (08:24)
[2021-09-24] MEDS: Rosuvastatin 10 MG Tab PO SCH (08:24)
[2021-09-24] MEDS: Insulin Glargine,Hum.Rec.Anlog 100 UNIT/ML 3 ML Pen SUBCUT SCH (08:24)
[2021-09-24] MEDS: Azithromycin 250 MG Tab PO SCH (08:25)
== END 2021-09-24 13:00 | disposition home or self-care (01) | DRG 291 ==
LOC: KA.ED 11:42 → KA.MS 13:09 → UNDOADMOB 13:10 → KA.MS 13:10 → OBSVTOIN 09-22 09:12
PROVIDERS: ADMIT Internal Medicine; ATTEND Internal Medicine
DX: I50.9 Heart failure, unspecified (principal); I13.0 Hypertensive heart and chronic kidney disease with heart failure and stage 1 through stage 4 chronic kidney disease, or unspecified chronic kidney disease; R07.9 Chest pain, unspecified; I20.0 Unstable angina; I50.23 Acute on chronic systolic (congestive) heart failure; N17.9 Acute kidney failure, unspecified; J44.9 Chronic obstructive pulmonary disease, unspecified; E11.22 Type 2 diabetes mellitus with diabetic chronic kidney disease; L84 Corns and callosities; H91.90 Unspecified hearing loss, unspecified ear; H54.7 Unspecified visual loss; K21.9 Gastro-esophageal reflux disease without esophagitis; E11.42 Type 2 diabetes mellitus with diabetic polyneuropathy; F41.9 Anxiety disorder, unspecified; F32.A Depression, unspecified; E11.40 Type 2 diabetes mellitus with diabetic neuropathy, unspecified; I25.110 Atherosclerotic heart disease of native coronary artery with unstable angina pectoris; N40.0 Benign prostatic hyperplasia without lower urinary tract symptoms; M19.90 Unspecified osteoarthritis, unspecified site; N18.9 Chronic kidney disease, unspecified; Z88.8 Allergy status to other drugs, medicaments and biological substances; Z79.82 Long term (current) use of aspirin; Z79.899 Other long term (current) drug therapy; Z79.51 Long term (current) use of inhaled steroids; I25.2 Old myocardial infarction; Z95.5 Presence of coronary angioplasty implant and graft
CPT/HCPCS: 36415 ×2; 71045; 80053 ×2; 82947; 83735; 83880 ×2; 84484 ×2; 85025 ×2; 85610; 85730; 96374; 96375; 99285; A9270 ×3; J1940 ×2; J2060; J2270; J2405; 96376; G0378; J1815-GY; J7030; J7620-GY

== ENCOUNTER 2021-09-28 11:17 | Emergency (ER) | payer MEDICARE, OTHER ==
[2021-09-28] MEDS ORDERED: Sodium Chloride 0.9% 10 ML Syringe FLUSH PRN (11:24)
[2021-09-28 12:00] LABS: ANION GAP 12.7 mmol/L (5-15)
[2021-09-28 13:21] VITALS: BP 120/87; PULSE 93
== END 2021-09-28 13:15 ==
LOC: KA.ED 11:17
DX: J44.1 Chronic obstructive pulmonary disease with (acute) exacerbation (principal); I13.0 Hypertensive heart and chronic kidney disease with heart failure and stage 1 through stage 4 chronic kidney disease, or unspecified chronic kidney disease; N18.9 Chronic kidney disease, unspecified; I50.9 Heart failure, unspecified; R79.89 Other specified abnormal findings of blood chemistry; R74.8 Abnormal levels of other serum enzymes; I25.10 Atherosclerotic heart disease of native coronary artery without angina pectoris; I25.2 Old myocardial infarction; E11.9 Type 2 diabetes mellitus without complications; Z95.1 Presence of aortocoronary bypass graft; Z95.5 Presence of coronary angioplasty implant and graft; Z88.8 Allergy status to other drugs, medicaments and biological substances; Z79.82 Long term (current) use of aspirin; Z79.899 Other long term (current) drug therapy
CPT/HCPCS: 36415; 71045; 80053; 83880; 84484; 85025; 85379; 93005; 93010; 99284; 99285-25

== ENCOUNTER 2021-10-11 00:58 | Emergency (ER) | payer MEDICARE, OTHER ==
[2021-10-11] MEDS ORDERED: Sodium Chloride 0.9% 10 ML Syringe FLUSH PRN (01:10)
[2021-10-11 01:59] LABS: ANION GAP 14.2 mmol/L (5-15); CHLORIDE,CL 99 mmol/L (98-107); SODIUM,NA 134 mmol/L (136-145)
[2021-10-11 06:29] VITALS: BP 110/84; PULSE 74
== END 2021-10-11 03:45 | disposition home or self-care (01) ==
LOC: SUPCPDRO 00:58 → KA.ED 00:58
DX: I07.9 Rheumatic tricuspid valve disease, unspecified (principal); E11.22 Type 2 diabetes mellitus with diabetic chronic kidney disease; I13.0 Hypertensive heart and chronic kidney disease with heart failure and stage 1 through stage 4 chronic kidney disease, or unspecified chronic kidney disease; N18.30 Chronic kidney disease, stage 3 unspecified; I50.9 Heart failure, unspecified; I25.10 Atherosclerotic heart disease of native coronary artery without angina pectoris; I25.2 Old myocardial infarction; J44.9 Chronic obstructive pulmonary disease, unspecified; K21.9 Gastro-esophageal reflux disease without esophagitis; E11.40 Type 2 diabetes mellitus with diabetic neuropathy, unspecified; Z88.8 Allergy status to other drugs, medicaments and biological substances; Z79.82 Long term (current) use of aspirin; Z79.899 Other long term (current) drug therapy; Z79.4 Long term (current) use of insulin
CPT/HCPCS: 36415; 71046; 80053; 83880; 84484; 85025; 93005; 93010; 99285; 99285-25

== ENCOUNTER 2022-05-16 22:25 | Emergency (ER) | payer MEDICARE, OTHER ==
[2022-05-16] MEDS ORDERED: Sodium Chloride 0.9% 10 ML Syringe FLUSH PRN (22:46)
[2022-05-16] MEDS: 50% Dextrose in Water 50 ML Syringe IVPUSH ONE (22:55)
[2022-05-16] MEDS: Sodium Chloride 0.9% 1,000 ML IV ONE (23:01)
[2022-05-16 23:38] LABS: ANION GAP 10.6 mmol/L (5-15)
[2022-05-17 01:33] VITALS: BP 105/55; PULSE 62
== END 2022-05-17 00:15 | disposition home or self-care (01) ==
LOC: KA.ED 22:25
DX: R42 Dizziness and giddiness (principal); E11.649 Type 2 diabetes mellitus with hypoglycemia without coma; E11.40 Type 2 diabetes mellitus with diabetic neuropathy, unspecified; I25.10 Atherosclerotic heart disease of native coronary artery without angina pectoris; I11.0 Hypertensive heart disease with heart failure; E78.00 Pure hypercholesterolemia, unspecified; I25.2 Old myocardial infarction; J44.9 Chronic obstructive pulmonary disease, unspecified; Z95.1 Presence of aortocoronary bypass graft; Z88.8 Allergy status to other drugs, medicaments and biological substances; Z79.82 Long term (current) use of aspirin; Z79.899 Other long term (current) drug therapy
CPT/HCPCS: 36415; 71045; 80053; 82947; 84484; 85025; 93005; 93010; 96361; 96374; 99284; 99284-25; J7030

== ENCOUNTER 2023-01-10 13:24 | Emergency (ER) | payer MEDICARE, OTHER, MEDICAID ==
[2023-01-10] MEDS ORDERED: Sodium Chloride 0.9% 10 ML Syringe FLUSH PRN (13:33)
[2023-01-10 13:44] LABS: BASOPHILS ABSOLUTE AUTO 0.06 10^3/uL (0.00-0.10); BASOPHILS PERCENT AUTO 0.8 % (0.0-1.0); EOSINOPHILS ABSOLUTE AUTO 0.27 10^3/uL (0.10-0.30); EOSINOPHILS PERCENT AUTO 3.6 % (1.0-3.0); HEMATOCRIT 41.5 % (40.0-52.0); HEMOGLOBIN 13.3 g/dL (13.0-17.0); IMMATURE GRAN ABSOLUTE AUTO 0.01 10^3/uL (0.00-0.50); IMMATURE GRAN PERCENT AUTO 0.1 % (0.0-5.0); LYMPHOCYTES ABSOLUTE AUTO 1.52 10^3/uL (1.00-4.00); LYMPHOCYTES PERCENT AUTO 20.3 % (20.0-40.0); MEAN CORPUSCULAR HEMOGLOBIN 30.7 pg (27.0-31.0); MEAN CORPUSCULAR VOLUME 95.8 fL (82.0-92.0); MEAN PLATELET VOLUME 10.1 fL (7.4-10.4); MONOCYTES ABSOLUTE AUTO 0.89 10^3/uL (0.10-0.80); MONOCYTES PERCENT AUTO 11.9 % (2.0-8.0); NEUTROPHILS ABSOLUTE AUTO 4.75 10^3/uL (2.50-7.00); NEUTROPHILS PERCENT AUTO 63.3 % (50.0-70.0); PLATELET COUNT,PLT 250 10^3/uL (150-400); RED BLOOD CELL COUNT 4.33 10^6/uL (4.50-6.00); RED CELL DISTRIBUTION WIDTH 14.7 % (11.5-14.5)
[2023-01-10 13:48] VITALS: BP 106/70; PULSE 76
[2023-01-10 14:01] LABS: ALBUMIN 3.29 g/dL (3.40-5.00); ANION GAP 14.6 mmol/L (5-15); BILIRUBIN TOTAL 0.3 mg/dL (0.2-1.0); CALCIUM 8.4 mg/dL (8.7-10.3); CARBON DIOXIDE,CO2 22.2 mmol/L (21.0-32.0); CREATININE 1.89 mg/dL (0.51-1.17); EST CRCL DRUG DOSING (CG) 37.57 mL/min; POTASSIUM,K 4.8 mmol/L (3.5-5.1); PROTEIN TOTAL,TP 6.9 g/dL (6.4-8.2)
== END 2023-01-10 15:23 | disposition home or self-care (01) ==
LOC: KA.ED 13:24
DX: I25.5 Ischemic cardiomyopathy (principal); I34.0 Nonrheumatic mitral (valve) insufficiency; I25.10 Atherosclerotic heart disease of native coronary artery without angina pectoris; I11.0 Hypertensive heart disease with heart failure; I50.9 Heart failure, unspecified; I25.2 Old myocardial infarction; E78.00 Pure hypercholesterolemia, unspecified; J43.9 Emphysema, unspecified; E11.40 Type 2 diabetes mellitus with diabetic neuropathy, unspecified; M19.90 Unspecified osteoarthritis, unspecified site; Z88.8 Allergy status to other drugs, medicaments and biological substances; Z79.82 Long term (current) use of aspirin; Z79.899 Other long term (current) drug therapy
CPT/HCPCS: 36415; 71046; 80053; 82947; 83880; 84484; 85025; 85379; 99284

== ENCOUNTER 2023-06-10 08:26 | Observation (INO) | payer MEDICARE, OTHER, MEDICAID ==
[2023-06-10] MEDS ORDERED: Sodium Chloride 0.9% 10 ML Syringe FLUSH PRN (08:45)
[2023-06-10 09:03] LABS: BASOPHILS ABSOLUTE AUTO 0.04 10^3/uL (0.00-0.10); BASOPHILS PERCENT AUTO 0.4 % (0.0-1.0); EOSINOPHILS PERCENT AUTO 1.1 % (1.0-3.0); HEMATOCRIT 43.7 % (40.0-52.0); HEMOGLOBIN 13.8 g/dL (13.0-17.0); IMMATURE GRAN ABSOLUTE AUTO 0.01 10^3/uL (0.00-0.50); IMMATURE GRAN PERCENT AUTO 0.1 % (0.0-5.0); LYMPHOCYTES ABSOLUTE AUTO 1.63 10^3/uL (1.00-4.00); LYMPHOCYTES PERCENT AUTO 17.2 % (20.0-40.0); MEAN CORPUSCULAR HEMOGLOBIN 30.6 pg (27.0-31.0); MEAN CORPUSCULAR HGB CONC 31.6 g/dL (32.0-36.0); MEAN CORPUSCULAR VOLUME 96.9 fL (82.0-92.0); MEAN PLATELET VOLUME 10.1 fL (7.4-10.4); MONOCYTES ABSOLUTE AUTO 0.77 10^3/uL (0.10-0.80); MONOCYTES PERCENT AUTO 8.1 % (2.0-8.0); NEUTROPHILS ABSOLUTE AUTO 6.91 10^3/uL (2.50-7.00); NEUTROPHILS PERCENT AUTO 73.1 % (50.0-70.0); PLATELET COUNT,PLT 280 10^3/uL (150-400); RED BLOOD CELL COUNT 4.51 10^6/uL (4.50-6.00); RED CELL DISTRIBUTION WIDTH 14.3 % (11.5-14.5); WHITE BLOOD CELL COUNT,WBC 9.46 10^3/uL (5.00-10.00)
[2023-06-10 09:28] LABS: ALANINE AMINOTRANSFERASE,ALT 17 U/L (14-63); ALBUMIN 3.66 g/dL (3.40-5.00); ALKALINE PHOSPHATASE 78 U/L (46-116); ANION GAP 14.5 mmol/L (5-15); ASPARTATE AMNIOTRANSFERASE,AST 17 U/L (15-37); BILIRUBIN TOTAL 0.3 mg/dL (0.2-1.0); BLOOD UREA NITROGEN,BUN 22 mg/dL (7-18); CALCIUM 8.8 mg/dL (8.7-10.3); CARBON DIOXIDE,CO2 25.3 mmol/L (21.0-32.0); CHLORIDE,CL 106 mmol/L (98-107); CREATININE 1.77 mg/dL (0.51-1.17); ETHANOL BLOOD MEDICAL 111 mg/dL (NOT DETECTED); GLUCOSE RANDOM 145 mg/dL (70-140); MAGNESIUM 2.1 mg/dL (1.8-2.4); POTASSIUM,K 4.8 mmol/L (3.5-5.1); PROTEIN TOTAL,TP 7.4 g/dL (6.4-8.2); SODIUM,NA 141 mmol/L (136-145)
[2023-06-10 09:29] LABS: ESTIMATED GFR 41 mL/min (>=60)
[2023-06-10] MEDS: Sodium Chloride 0.9% 1,000 ML IV SCH ×2 (09:50→15:10)
[2023-06-10] MEDS ORDERED: Sennosides/Docusate Sodium 50-8.6 MG Tab PO PRN (13:15)
[2023-06-10] MEDS ORDERED: Naloxone 0.4 MG/ML SDV IVPUSH PRN (13:15)
[2023-06-10] MEDS ORDERED: Acetaminophen 325 MG Tab PO PRN (13:15)
[2023-06-10] MEDS ORDERED: Melatonin 3 MG Tab PO PRN (13:15)
[2023-06-10] MEDS ORDERED: Nitroglycerin 0.4 MG Tab.SL SL SCH (13:15)
[2023-06-10] MEDS ORDERED: oxyCODONE 5 MG Tab PO PRN (13:15)
[2023-06-10] MEDS ORDERED: Morphine 2 MG/ML SYRINGE IVPUSH PRN (13:15)
[2023-06-10] MEDS ORDERED: Non-Formulary Medication 1 Each (Fluticasone Propion/Salmeterol [Fluticasone-Salmeterol 25 INH PRN (13:15)
[2023-06-10] MEDS ORDERED: Ondansetron 4 MG Tab.DIS PO PRN (13:15)
[2023-06-10] MEDS ORDERED: Albuterol 0.083% 2.5 MG/3 ML Neb Soln NEB PRN (13:15)
[2023-06-10] MEDS ORDERED: Albuterol 8 GM Inhaler INH PRN (13:15)
[2023-06-10] MEDS ORDERED: fentaNYL 100 MCG/2 ML SDV IVPUSH ONE (13:30)
[2023-06-10] MEDS ORDERED: Ferrous Sulfate 325 MG Tab PO SCH (14:30)
[2023-06-10] MEDS: Metoprolol Succinate 25 MG Tab.ER PO SCH (15:07)
[2023-06-10] MEDS: Aspirin 81 MG Tab.EC PO SCH (15:08)
[2023-06-10] MEDS ORDERED: Glucagon,Human Recombinant 1 MG Vial IM PRN (16:19)
[2023-06-10] MEDS ORDERED: 50% Dextrose in Water 50 ML Syringe IVPUSH PRN (16:19)
[2023-06-10] MEDS ORDERED: Sodium Chloride 0.9% 1,000 ML IV SCH (16:45)
[2023-06-10] MEDS: Acetaminophen/HYDROcodone 325-5 MG Tab PO PRN (17:20)
[2023-06-10] MEDS: Insulin Lispro 100 Unit/ML 3 ML KwikPen SUBCUT SCH (17:58)
[2023-06-10] MEDS: RANOLAZINE 500 MG PO SCH (20:53)
[2023-06-10] MEDS: ENTRESTO PO SCH (20:54)
[2023-06-11] MEDS: Acetaminophen/HYDROcodone 325-5 MG Tab PO PRN (02:00)
[2023-06-11] MEDS: Levothyroxine 25 MCG Tab PO SCH ×2 (06:07→06:34)
[2023-06-11] MEDS: Insulin Lispro 100 Unit/ML 3 ML KwikPen SUBCUT SCH (07:52)
[2023-06-11 07:59] LABS: BASOPHILS ABSOLUTE AUTO 0.06 10^3/uL (0.00-0.10); BASOPHILS PERCENT AUTO 0.6 % (0.0-1.0); EOSINOPHILS ABSOLUTE AUTO 0.12 10^3/uL (0.10-0.30); EOSINOPHILS PERCENT AUTO 1.1 % (1.0-3.0); HEMATOCRIT 45.5 % (40.0-52.0); HEMOGLOBIN 14.2 g/dL (13.0-17.0); IMMATURE GRAN ABSOLUTE AUTO 0.01 10^3/uL (0.00-0.50); IMMATURE GRAN PERCENT AUTO 0.1 % (0.0-5.0); LYMPHOCYTES PERCENT AUTO 15.7 % (20.0-40.0); MEAN CORPUSCULAR HEMOGLOBIN 30.5 pg (27.0-31.0); MEAN CORPUSCULAR HGB CONC 31.2 g/dL (32.0-36.0); MEAN CORPUSCULAR VOLUME 97.6 fL (82.0-92.0); MEAN PLATELET VOLUME 10.5 fL (7.4-10.4); MONOCYTES ABSOLUTE AUTO 1.12 10^3/uL (0.10-0.80); MONOCYTES PERCENT AUTO 10.3 % (2.0-8.0); NEUTROPHILS ABSOLUTE AUTO 7.84 10^3/uL (2.50-7.00); NEUTROPHILS PERCENT AUTO 72.2 % (50.0-70.0); PLATELET COUNT,PLT 272 10^3/uL (150-400); RED BLOOD CELL COUNT 4.66 10^6/uL (4.50-6.00); RED CELL DISTRIBUTION WIDTH 14.2 % (11.5-14.5); WHITE BLOOD CELL COUNT,WBC 10.85 10^3/uL (5.00-10.00)
[2023-06-11 08:15] LABS: ANION GAP 12.9 mmol/L (5-15); CALCIUM 8.5 mg/dL (8.7-10.3); CARBON DIOXIDE,CO2 25.3 mmol/L (21.0-32.0); CREATININE 1.63 mg/dL (0.51-1.17); EST CRCL DRUG DOSING (CG) 41.9 mL/min; MAGNESIUM 1.7 mg/dL (1.8-2.4); POTASSIUM,K 5.2 mmol/L (3.5-5.1)
[2023-06-11] MEDS: RANOLAZINE 500 MG PO SCH (08:33)
[2023-06-11] MEDS: Aspirin 81 MG Tab.EC PO SCH (08:33)
[2023-06-11] MEDS: ENTRESTO PO SCH (08:33)
[2023-06-11] MEDS: Metoprolol Succinate 25 MG Tab.ER PO SCH (08:41)
[2023-06-11 08:43] VITALS: BP 158/60; PULSE 96
[2023-06-11] MEDS ORDERED: Rosuvastatin 10 MG Tab PO SCH (09:00)
== END 2023-06-11 10:47 | disposition home or self-care (01) ==
LOC: KA.ED 08:26 → KA.MS 10:38
PROVIDERS: ADMIT Physician Assistant Medical; ATTEND Family Medicine
DX: S12.112A Nondisplaced Type II dens fracture, initial encounter for closed fracture (principal); S06.9X9A Unspecified intracranial injury with loss of consciousness of unspecified duration, initial encounter; I13.0 Hypertensive heart and chronic kidney disease with heart failure and stage 1 through stage 4 chronic kidney disease, or unspecified chronic kidney disease; I50.9 Heart failure, unspecified; E11.22 Type 2 diabetes mellitus with diabetic chronic kidney disease; I25.110 Atherosclerotic heart disease of native coronary artery with unstable angina pectoris; N18.30 Chronic kidney disease, stage 3 unspecified; E11.40 Type 2 diabetes mellitus with diabetic neuropathy, unspecified; I25.5 Ischemic cardiomyopathy; I34.0 Nonrheumatic mitral (valve) insufficiency; J44.1 Chronic obstructive pulmonary disease with (acute) exacerbation; K21.9 Gastro-esophageal reflux disease without esophagitis; N40.0 Benign prostatic hyperplasia without lower urinary tract symptoms; E78.00 Pure hypercholesterolemia, unspecified; E03.9 Hypothyroidism, unspecified; F32.A Depression, unspecified; I25.2 Old myocardial infarction; Z95.1 Presence of aortocoronary bypass graft; Z98.890 Other specified postprocedural states; F17.210 Nicotine dependence, cigarettes, uncomplicated; Z79.82 Long term (current) use of aspirin; Z79.4 Long term (current) use of insulin; Z79.890 Hormone replacement therapy; Z79.899 Other long term (current) drug therapy; Z88.8 Allergy status to other drugs, medicaments and biological substances; W19.XXXA Unspecified fall, initial encounter
CPT/HCPCS: 36415; 70450; 72125; 80048; 80053; 80307; 82947; 83735; 84484; 85025; 93005; 96361; 96374; 99285; A9270; G0378; J3010; J7030; Q3014; 96360

== ENCOUNTER 2024-02-17 12:08 | Emergency (ER) | payer OTHER ==
[2024-02-17 12:25] LABS: BASOPHILS ABSOLUTE AUTO 0.04 10^3/uL (0.00-0.10); BASOPHILS PERCENT AUTO 0.6 % (0.0-1.0); EOSINOPHILS ABSOLUTE AUTO 0.24 10^3/uL (0.10-0.30); EOSINOPHILS PERCENT AUTO 3.6 % (1.0-3.0); HEMATOCRIT 40.7 % (40.0-52.0); HEMOGLOBIN 13.2 g/dL (13.0-17.0); LYMPHOCYTES ABSOLUTE AUTO 1.51 10^3/uL (1.00-4.00); LYMPHOCYTES PERCENT AUTO 22.9 % (20.0-40.0); MEAN CORPUSCULAR HEMOGLOBIN 31.1 pg (27.0-31.0); MEAN CORPUSCULAR HGB CONC 32.4 g/dL (32.0-36.0); MONOCYTES ABSOLUTE AUTO 0.72 10^3/uL (0.10-0.80); MONOCYTES PERCENT AUTO 10.9 % (2.0-8.0); NEUTROPHILS ABSOLUTE AUTO 4.08 10^3/uL (2.50-7.00); PLATELET COUNT,PLT 239 10^3/uL (150-400); RED BLOOD CELL COUNT 4.24 10^6/uL (4.50-6.00); RED CELL DISTRIBUTION WIDTH 13.5 % (11.5-14.5); WHITE BLOOD CELL COUNT,WBC 6.59 10^3/uL (5.00-10.00)
[2024-02-17] MEDS: Sodium Chloride 0.9% 1,000 ML IV ONE (12:37)
[2024-02-17 12:45] LABS: ALANINE AMINOTRANSFERASE,ALT 20 U/L (14-63); ALBUMIN 3.22 g/dL (3.40-5.00); ALKALINE PHOSPHATASE 60 U/L (46-116); ANION GAP 12.9 mmol/L (5-15); ASPARTATE AMNIOTRANSFERASE,AST 20 U/L (15-37); BILIRUBIN TOTAL 0.5 mg/dL (0.2-1.0); BLOOD UREA NITROGEN,BUN 29 mg/dL (7-18); CALCIUM 8.5 mg/dL (8.7-10.3); CARBON DIOXIDE,CO2 23.9 mmol/L (21.0-32.0); CHLORIDE,CL 104 mmol/L (98-107); CREATININE 1.91 mg/dL (0.51-1.17); ESTIMATED GFR 38 mL/min (>=60); GLUCOSE RANDOM 147 mg/dL (70-140); POTASSIUM,K 4.8 mmol/L (3.5-5.1); PROTEIN TOTAL,TP 6.6 g/dL (6.4-8.2); SODIUM,NA 136 mmol/L (136-145)
[2024-02-17 18:34] VITALS: BP 111/69; PULSE 73
== END 2024-02-17 13:53 | disposition home or self-care (01) ==
LOC: KA.ED 12:08
DX: I95.1 Orthostatic hypotension (principal); E86.0 Dehydration; I25.2 Old myocardial infarction; E78.00 Pure hypercholesterolemia, unspecified; I13.0 Hypertensive heart and chronic kidney disease with heart failure and stage 1 through stage 4 chronic kidney disease, or unspecified chronic kidney disease; I50.9 Heart failure, unspecified; N18.30 Chronic kidney disease, stage 3 unspecified; E03.9 Hypothyroidism, unspecified; E11.22 Type 2 diabetes mellitus with diabetic chronic kidney disease; E11.21 Type 2 diabetes mellitus with diabetic nephropathy; Z88.8 Allergy status to other drugs, medicaments and biological substances; Z79.82 Long term (current) use of aspirin; Z79.51 Long term (current) use of inhaled steroids; Z79.899 Other long term (current) drug therapy; Z79.4 Long term (current) use of insulin; Z79.890 Hormone replacement therapy; Z95.1 Presence of aortocoronary bypass graft
CPT/HCPCS: 80053; 85025; 96360; 99284; 99284-25; J7030

== ENCOUNTER 2024-04-13 17:31 | Emergency (ER) | payer MEDICARE, OTHER, MEDICAID ==
[2024-04-13 17:53] VITALS: BP 111/66; PULSE 82
== END 2024-04-13 18:55 | disposition home or self-care (01) ==
LOC: KA.ED 17:31
DX: S22.31XA Fracture of one rib, right side, initial encounter for closed fracture (principal); I13.0 Hypertensive heart and chronic kidney disease with heart failure and stage 1 through stage 4 chronic kidney disease, or unspecified chronic kidney disease; I50.9 Heart failure, unspecified; N18.30 Chronic kidney disease, stage 3 unspecified; I25.10 Atherosclerotic heart disease of native coronary artery without angina pectoris; I25.2 Old myocardial infarction; E78.00 Pure hypercholesterolemia, unspecified; J44.9 Chronic obstructive pulmonary disease, unspecified; E11.22 Type 2 diabetes mellitus with diabetic chronic kidney disease; E11.40 Type 2 diabetes mellitus with diabetic neuropathy, unspecified; E03.9 Hypothyroidism, unspecified; Z95.1 Presence of aortocoronary bypass graft; Z95.5 Presence of coronary angioplasty implant and graft; Z79.82 Long term (current) use of aspirin; Z79.4 Long term (current) use of insulin; Z79.84 Long term (current) use of oral hypoglycemic drugs; Z79.890 Hormone replacement therapy; Z79.899 Other long term (current) drug therapy; Z88.8 Allergy status to other drugs, medicaments and biological substances; W11.XXXA Fall on and from ladder, initial encounter
CPT/HCPCS: 71101-RT; 99283

== ENCOUNTER 2025-04-27 22:08 | Emergency (ER) | payer OTHER, MEDICARE, MEDICAID ==
[2025-04-27] MEDS ORDERED: Sodium Chloride 0.9% 10 ML Syringe FLUSH PRN (22:10)
[2025-04-27 22:55] LABS: BASOPHILS ABSOLUTE AUTO 0.06 10^3/uL (0.00-0.10); BASOPHILS PERCENT AUTO 0.6 % (0.0-1.0); EOSINOPHILS ABSOLUTE AUTO 0.31 10^3/uL (0.10-0.30); EOSINOPHILS PERCENT AUTO 3.2 % (1.0-3.0); IMMATURE GRAN ABSOLUTE AUTO 0.02 10^3/uL (0.00-0.04); IMMATURE GRAN PERCENT AUTO 0.2 % (0.0-0.4); LYMPHOCYTES ABSOLUTE AUTO 2.80 10^3/uL (1.00-4.00); LYMPHOCYTES PERCENT AUTO 29.2 % (20.0-40.0); MEAN PLATELET VOLUME 9.4 fL (7.4-10.4); MONOCYTES ABSOLUTE AUTO 0.79 10^3/uL (0.10-0.80); MONOCYTES PERCENT AUTO 8.2 % (2.0-8.0); NEUTROPHILS ABSOLUTE AUTO 5.60 10^3/uL (2.50-7.00); NEUTROPHILS PERCENT AUTO 58.6 % (50.0-70.0); PLATELET COUNT,PLT 311 10^3/uL (150-400); RED BLOOD CELL COUNT 4.58 10^6/uL (4.50-6.00); RED CELL DISTRIBUTION WIDTH 13.8 % (11.5-14.5); WHITE BLOOD CELL COUNT,WBC 9.58 10^3/uL (5.00-10.00)
[2025-04-27 23:11] LABS: ALANINE AMINOTRANSFERASE,ALT 21 U/L (14-63); ASPARTATE AMNIOTRANSFERASE,AST 15 U/L (15-37); BILIRUBIN TOTAL 0.3 mg/dL (0.2-1.0); BLOOD UREA NITROGEN,BUN 22 mg/dL (7-18); CARBON DIOXIDE,CO2 28.2 mmol/L (21.0-32.0); CHLORIDE,CL 101 mmol/L (98-107); CREATININE 2.25 mg/dL (0.51-1.17); EST CRCL DRUG DOSING (CG) 33.03 mL/min; ESTIMATED GFR 31 mL/min (>=60); GLUCOSE RANDOM 109 mg/dL (70-140); POTASSIUM,K 4.5 mmol/L (3.5-5.1); PROTEIN TOTAL,TP 7.0 g/dL (6.4-8.2); SODIUM,NA 137 mmol/L (136-145)
[2025-04-27 23:12] LABS: ETHANOL BLOOD MEDICAL < 3 mg/dL (<3)
[2025-04-28 01:12] VITALS: BP 121/72; PULSE 75
== END 2025-04-28 00:50 | disposition home or self-care (01) ==
LOC: KA.ED 22:08
DX: R42 Dizziness and giddiness (principal); I11.0 Hypertensive heart disease with heart failure; I50.9 Heart failure, unspecified; K21.9 Gastro-esophageal reflux disease without esophagitis; E11.9 Type 2 diabetes mellitus without complications; F17.200 Nicotine dependence, unspecified, uncomplicated; Z88.8 Allergy status to other drugs, medicaments and biological substances; Z79.82 Long term (current) use of aspirin; Z79.890 Hormone replacement therapy; Z79.899 Other long term (current) drug therapy
CPT/HCPCS: 71045; 80053; 80307; 85025; 99284